=== PATIENT | male | born 1955 | race Caucasian/White ===

== ENCOUNTER 2021-11-01 14:53 | Inpatient (IN) | payer MEDICARE, OTHER ==
[~2021-11-01] VITALS: Ht 172.7 cm; Wt 60.8 kg
--- NOTE | 2021-11-01 15:15 | NUR ---
stephanie, from sn[facility], altered per report since this morning, +covid, no SOB. PLACED ON BED, AAOX4, SHAKY HANDS NOTED.
--- NOTE | 2021-11-01 15:30 | NUR ---
COAL PULVERIZING OPERATOR. AT BED SIDE
[2021-11-01] MEDS ORDERED: MULT-447 PO (15:31)
[2021-11-01] MEDS ORDERED: ASCO-352 PO (15:31)
[2021-11-01] MEDS ORDERED: LEVE1000 PO (15:31)
[2021-11-01] MEDS ORDERED: DULO30CA2 PO (15:31)
[2021-11-01] MEDS ORDERED: MAGN400O6 PO (15:31)
[2021-11-01] MEDS ORDERED: GABA600T12 PO (15:31)
[2021-11-01] MEDS ORDERED: DONE5TAB34 PO (15:31)
[2021-11-01] MEDS ORDERED: NA P133E RC (15:31)
[2021-11-01] MEDS ORDERED: BENZ1LOZ58 MM (15:31)
[2021-11-01] MEDS ORDERED: DOCU-141 PO (15:31)
[2021-11-01] MEDS ORDERED: PIMA34CA PO (15:31)
[2021-11-01] MEDS ORDERED: ACET-868 PO (15:31)
[2021-11-01] MEDS ORDERED: CARB1TAB21 PO (15:31)
[2021-11-01] MEDS ORDERED: BISA10SU11 RC (15:31)
[2021-11-01] MEDS ORDERED: CRAN425C6 PO (15:31)
[2021-11-01] MEDS ORDERED: ONDA4TAB5 PO (15:31)
[2021-11-01 16:09] LABS: BASOPHILS % (AUTO) 0.4 % (0.0-2.0); EOSINOPHILS % (AUTO) 0.3 % (0.0-6.0); HEMATOCRIT 37 % (39-51); HEMOGLOBIN 12.5 g/dL (13.5-17.5); LYMPHOCYTES # (AUTO) 1.6 K/uL (0.8-4.8); LYMPHOCYTES % (AUTO) 28.3 % (20.0-44.0); MEAN CORPUSCULAR HGB CONC 34 g/dl (31.0-36.0); MEAN CORPUSCULAR VOLUME 94 fL (80-96); MONOCYTES # (AUTO) 1.2 K/uL (0.1-1.30); MONOCYTES % (AUTO) 20.3 % (2.0-12.0); NEUTROPHILS # (AUTO) 2.9 K/uL (1.8-8.9); NEUTROPHILS % (AUTO) 50.7 % (43.0-81.0); PLATELET COUNT (AUTO) 267 K/uL (150-450); RED BLOOD CELL COUNT(AUTO) 3.92 MIL/uL (4.5-6.0); WHITE BLOOD COUNT (AUTO) 5.7 K/uL (4.3-11.0)
[2021-11-01 16:16] LABS: CALCIUM, SERUM 8.2 mg/dL (8.5-10.1); CARBON DIOXIDE 27 mmol/L (21-32); CHLORIDE 97 mmol/L (98-107); CREATININE 1.1 mg/dL (0.6-1.3); GLUCOSE 92 mg/dL (74-106); POTASSIUM 4.4 mmol/L (3.5-5.1); SODIUM SERUM 133 mmol/L (136-145); UREA NITROGEN, BLOOD 33 mg/dL (7-18)
[2021-11-01 16:21] LABS: CREATINE KINASE, TOTAL 386 U/L (39-308)
[2021-11-01 16:24] LABS: D-DIMER 0.59 mg/L(FEU (0.17-0.50)
[2021-11-01 16:26] LABS: C-REACTIVE PROTEIN 3.2 mg/dL (0.0-0.9)
[2021-11-01 16:30] LABS: ALANINE AMINOTRANSFERASE 21 U/L (12-78); ALBUMIN 3.3 g/dL (3.4-5.0); ALKALINE PHOSPHATASE 46 U/L (46-116); ASPARTATE AMINOTRANSFERASE 31 U/L (15-37); BILIRUBIN,TOTAL 0.3 mg/dL (0.2-1.0)
--- NOTE | 2021-11-01 17:25 | NUR ---
URINE SAMPLE, RAPID INFLUENZA ANTIGEN, NOVEL CORONAVIRUS RICHARD SENT TO LAB
[2021-11-01 18:32] LABS: BILIRUBIN,URINE NEGATIVE (NEGATIVE); COLOR,URINE YELLOW (YELLOW); LEUKOCYTE ESTERASE ,URINE NEGATIVE (NEGATIVE); NITRITE, URINE NEGATIVE (NEGATIVE); PROTEIN,URINE NEGATIVE (NEGATIVE); UGLUCOSE NEGATIVE (NEGATIVE); UROBILINOGEN,URINE 0.2 EU/dL (0.2)
--- NOTE | 2021-11-01 18:52 | NUR ---
PATIENT REFUSED IV CANULA- SALINE LOCK
[2021-11-01 19:26] LABS: BACTERIA,URINE None seen /HPF (None Seen); SQUAMOUS EPITHELIAL CELL,UR 0-2 /HPF (None Seen); WBC,URINE 0-2 /HPF (0-3)
[2021-11-01] MEDS ORDERED: MAGNESIUM HYDROXIDE 30 ML UDC PO PRN (20:30)
[2021-11-01] MEDS ORDERED: NA PHOS,M-B/NA PHOS,DI-BA 1 EA ENEMA RC PRN (20:30)
[2021-11-01] MEDS ORDERED: ALBUTEROL SULFATE 8 GM HFA.AER.AD IH PRN (20:30)
[2021-11-01] MEDS ORDERED: BISACODYL SUPP (10 MG) 10 MG/SUPP.RECT SUPP.RECT RC PRN (20:30)
[2021-11-01] MEDS ORDERED: MENTHOL/CETYLPYRD (CEPACOL) 1 LOZ LOZENGE PO PRN (20:30)
[2021-11-01] MEDS ORDERED: ACETAMINOPHEN 325 MG TABLET PO PRN (20:30)
[2021-11-01] MEDS ORDERED: HOME MED MISCELLANEOUS XX SCH (20:30)
--- NOTE | 2021-11-01 20:30 | NUR ---
REPORT GIVEN TO AYO PRITCHARD [id number] FOR CLEMENTE
[2021-11-01 21:00] VITALS: BP_SYST 86; BP_SYST 92; BP_DIAS 49
[2021-11-01] MEDS: LEVETIRACETAM (250 MG) 250 MG TABLET PO SCH (21:00)
[2021-11-01] MEDS: ENOXAPARIN SODIUM 40 MG/0.4 ML DISP.SYRIN SQ SCH (21:00)
--- NOTE | 2021-11-01 21:04 | NUR ---
RUBBER MIXER RCD PT FROM ER NO IV ACCESS IN PLACE MD AND NURSING PANEL INSTRUMENT REPAIRER AWARE. ATTEMPTED TO ASSES PT HOWEVER PT BECAME AGGRESSIVE AND WAS KICKING AND PUNCHING AT STAFF. PT AWAKE BUT DOES NOT ANSWER QUESTIONS; ONLY GRUNTS. UNABLE TO REMOVE PT CLOTHING. UNABLE TO ASSESS ARM COVERED IN BANDAGE. BED ALARM ON AND TO LOWEST POSITION.
--- NOTE | 2021-11-01 21:38 | NUR ---
PULMONOLOGY TECHNICIAN UNABLE TO COMPLETE PHYSICAL ASSESSMENT PT IS COMBATIVE Addendum: 11/01/21 at 2139 by AYO ANDREWS RN Amended: Links added.
[2021-11-01 21:50] LABS: BAND % (MANUAL) 2 % (0.0-5.0); LYMPHOCYTES % (MANUAL) 28 % (16-48); MONOCYTES % (MANUAL) 11 % (0-11.0); NEUTROPHILS % (MANUAL) 59 (42-76)
[2021-11-02 06:30] LABS: BASOPHILS % (AUTO) 0.4 % (0.0-2.0); EOSINOPHILS % (AUTO) 0.6 % (0.0-6.0); HEMATOCRIT 36 % (39-51); HEMOGLOBIN 12.6 g/dL (13.5-17.5); LYMPHOCYTES # (AUTO) 1.2 K/uL (0.8-4.8); LYMPHOCYTES % (AUTO) 25.1 % (20.0-44.0); MEAN CORPUSCULAR HGB CONC 35 g/dl (31.0-36.0); MEAN CORPUSCULAR VOLUME 92 fL (80-96); MONOCYTES % (AUTO) 19.8 % (2.0-12.0); NEUTROPHILS # (AUTO) 2.6 K/uL (1.8-8.9); NEUTROPHILS % (AUTO) 54.1 % (43.0-81.0); PLATELET COUNT (AUTO) 252 K/uL (150-450); RED BLOOD CELL COUNT(AUTO) 3.91 MIL/uL (4.5-6.0); WHITE BLOOD COUNT (AUTO) 4.8 K/uL (4.3-11.0)
[2021-11-02 06:51] LABS: ALBUMIN 3.2 g/dL (3.4-5.0); BILIRUBIN,TOTAL 0.3 mg/dL (0.2-1.0); CALCIUM, SERUM 8.6 mg/dL (8.5-10.1); CREATININE 1.2 mg/dL (0.6-1.3); POTASSIUM 4.5 mmol/L (3.5-5.1); TOTAL PROTEIN, SERUM 7.2 g/dL (6.4-8.2)
--- NOTE | 2021-11-02 07:37 | NUR ---
ms opening note Patient is resting comfortably in bed. Patient is alert and confused. patient is still refusing iv patient breathing room air. bed alarm on. bed locked in lowest position. will continue to monitor
[2021-11-02 08:00] VITALS: BP 105/58
[2021-11-02] MEDS: MULTIVITAMINS,THERAGRAN 1 UDTAB TABLET PO SCH (08:36)
[2021-11-02] MEDS: CARBIDOPA/LEVODOPA 25/100 MG 1 UDTAB PO SCH ×3 (08:36→16:04)
[2021-11-02] MEDS: GABAPENTIN 300 MG CAPSULE PO SCH ×4 (08:38→16:04)
[2021-11-02] MEDS: DULOXETINE HCL 30 MG CAPSULE.DR PO SCH (08:39)
[2021-11-02] MEDS: LEVETIRACETAM (250 MG) 250 MG TABLET PO SCH ×2 (08:39→21:00)
[2021-11-02] MEDS: DOCUSATE SODIUM 100 MG CAPSULE PO SCH (08:39)
[2021-11-02] MEDS: DONEPEZIL 5 MG TABLET PO SCH (08:39)
[2021-11-02] MEDS: ENOXAPARIN SODIUM 40 MG/0.4 ML DISP.SYRIN SQ SCH ×2 (08:39→21:00)
--- NOTE | 2021-11-02 08:42 | NUR ---
ms rn note patient refused most of his Meds and get agitated and noncompliant with care, explained how importance to take his medication but still refusing, spoke with tameka morris notified patient condition stated that will order [facility] dean
[2021-11-02 10:00] VITALS: BP 105/58
--- NOTE | 2021-11-02 10:20 | NUR ---
MS RN NOTE SEEN BY DR HUGO LIMON F\U
--- NOTE | 2021-11-02 11:11 | NUR ---
tele note called geripsych unit informed for psych eval. face sheet faxed.waiting for psychiatrist. rounds made. pt resting comfortably at this time
[2021-11-02 12:07] LABS: BAND % (MANUAL) 6 % (0.0-5.0); EOSINOPHILS % (MANUAL) 0 % (0-4); LYMPHOCYTES % (MANUAL) 37 % (16-48); MONOCYTES % (MANUAL) 22 % (0-11.0); NEUTROPHILS % (MANUAL) 35 (42-76)
--- NOTE | 2021-11-02 12:09 | NUR ---
pt strongly refusing medications after explaining the importance of medication
--- NOTE | 2021-11-02 12:15 | NUR ---
rounds made, patient is agitated. changed diaper, patient is clean and dry
--- NOTE | 2021-11-02 12:16 | NUR ---
followed up with psychiatrist and will visit patient tomorrow Addendum: 11/02/21 at 1226 by NICOLE THAYER RN dr orozco financial administrative assistant will see patient tomorrows
--- NOTE | 2021-11-02 12:28 | NUR ---
SS consult requested for aggressive behavior and non compliance. SW will follow up at a later time.
--- NOTE | 2021-11-02 15:13 | NUR ---
telephone collector note spoke with patient about home medication Nuplazid. family member can't bring it because doesn't where medication is. Pharmacy doesn't have this medication.spoke with pharmacy.pharmacy will follow up with MD. will follow up.
--- NOTE | 2021-11-02 15:28 | NUR ---
MS RN NOTE CALLED TO Padmaja ISSA NOTIFIED THAT PATIENT VERY AGITATED AND YELLING STATED DONT LET ME . NAVDEEP FROST ORDERED ZYPREXA 10 MG IM TIME ONE, ORDER CARRIED OUT
[2021-11-02] MEDS ORDERED: OLANZAPINE 10 MG VIAL IM ONE ×2 (15:30→16:30)
[2021-11-02 16:00] VITALS: BP 130/69
[2021-11-02] MEDS: ASCORBIC ACID 500 MG TABLET PO SCH (17:43)
--- NOTE | 2021-11-02 17:43 | NUR ---
MS RN NOTE PATIENT YELLING, AGITATED AND SCREAMING. ADMINISTERED OLANZAPINE AT 1730.PATIENT TRYING TO GET UP FROM BED.MEDICATION NOT GIVEN AT 1630.GIVEN AT 1740.ALL NEEDS MEET.KEEP CLEAN AND DRY
--- NOTE | 2021-11-02 18:32 | NUR ---
,S RN NOTE PATIENT IN BED STILL AGITATED HAVING DINNER , WILL CONT TO MONITOR CLOSELY
[2021-11-02 20:00] VITALS: BP 117/70
--- NOTE | 2021-11-02 20:12 | NUR ---
MS RN Opening Note Pt received in bed, awake, A&O x2 with periods of confusion. Pt is calm at the moment with no expressions of combativeness and irritation. Pt on RA with O2sat of 98%; pt shows no s/s of resp distress, no SOB or cough, non-labored and equal breathing. VSS, will continue to monitor as needed. Per endorsement from dayshift nurse, pt has refused to have IV initiated over the past couple of shifts; made aware. Bed in lowest position, call light within reach, side rails up x3. Will continue to monitor throughout the night.
--- NOTE | 2021-11-02 21:16 | NUR ---
MS RN Note Pt refused to take 2100 scheduled meds levetiracetam and lovenox.
[2021-11-03 04:00] VITALS: BP 107/74
--- NOTE | 2021-11-03 06:25 | NUR ---
MS RN Closing Notes Pt in bed, asleep but easily arousable, A&O x2-3 with periods of confusion. Pt was asleep from beginning of shift and woke up at 0100. When pt woke up, pt began yelling but no attempts made of getting out of bed. Pt was given fluids and snacks at 0400, then went back to sleep. Pt remains on RA O2sat was 98% throughout the whole night with no s/s of resp distress, no SOB, non-labored and equal breathing; appears comfortable overall. VSS throughout the whole night with no significant changes. Pt refused 2100 scheduled meds. Bed in lowest position, call light within reach, side rails up x3. WIll endorse to dayshift nurse to continue care.
[2021-11-03 08:00] VITALS: BP 120/68
--- NOTE | 2021-11-03 08:12 | NUR ---
RN OPENING NOTE- PT AWAKE, CONFUSED, IRRITABLE AT TIMES, INTERACTIVE, LABILE THOUGH DIRECTABLE, VS STABLE, PO INTAKE GOOD, MONITOR / ASSIST , ASSESS FOR BEHAVIORAL ISSUES, BED LOCKED, SIDE RAILS UP.
[2021-11-03] MEDS: LEVETIRACETAM (250 MG) 250 MG TABLET PO SCH ×2 (09:12→20:19)
[2021-11-03] MEDS: CARBIDOPA/LEVODOPA 25/100 MG 1 UDTAB PO SCH ×3 (09:12→16:24)
[2021-11-03] MEDS: DULOXETINE HCL 30 MG CAPSULE.DR PO SCH (09:12)
[2021-11-03] MEDS: MULTIVITAMINS,THERAGRAN 1 UDTAB TABLET PO SCH (09:12)
[2021-11-03] MEDS: DONEPEZIL 5 MG TABLET PO SCH (09:12)
[2021-11-03] MEDS: GABAPENTIN 300 MG CAPSULE PO SCH ×3 (09:12→16:24)
[2021-11-03] MEDS: DOCUSATE SODIUM 100 MG CAPSULE PO SCH (09:12)
[2021-11-03] MEDS: ENOXAPARIN SODIUM 40 MG/0.4 ML DISP.SYRIN SQ SCH ×2 (09:14→20:19)
[2021-11-03] MEDS ORDERED: hydrOXYzine PAMOATE 25 MG CAPSULE PO PRN (11:00)
[2021-11-03 12:00] VITALS: BP 124/80
--- NOTE | 2021-11-03 12:00 | NUR ---
RN NOTE- DR MOHAN SAW PT FOR PSYCHE CONSULT. ADDED RX TO REGIMEN. PT CALM, DIRECTABLE. PO INTAKE GOOD . UNDERSTANDS NEED TO STAY IN HOSPITAL UNTIL COVID TEST NEG.
[2021-11-03] MEDS: clonazePAM 0.5 MG TABLET PO SCH ×2 (12:31→16:24)
[2021-11-03] MEDS: ASCORBIC ACID 500 MG TABLET PO SCH (17:08)
--- NOTE | 2021-11-03 17:56 | NUR ---
PER MICRO PATIENT IS COVID POSITIVE PCR. NOTIFIED.
--- NOTE | 2021-11-03 18:57 | NUR ---
RN CLOSING NOTE- PT AWAKE, CONFUSED, CALMER THIS AFTERNOON, RX EFFECTIVE, INTERACTIVE, DIRECTABLE, VS STABLE, PO INTAKE GOOD, MONITOR / ASSIST , ASSESS FOR BEHAVIORAL ISSUES, BED LOCKED, SIDE RAILS UP.
--- NOTE | 2021-11-03 19:10 | NUR ---
RN OPENING NOTES RECEIVED PATIENT ON BED, SLEEPING, BUT AROUSE EASILY, COOPERATIVE, A/0 X 2-3 . AMBULATORY WITH ASSIST. ON ROOM AIR, SATING AT 98%. RESPIRATORY EVEN AND UNLABORED, NO SOB NOTED. AFEBRILE, NO S/S OF DISTRESS NOTED. NO IV LINE, PATIENT REFUSED. ALL SAFETY MEASURE PROVIDED. BED IN LOWEST POSITION, LOCKED. BED ALARM ARMED. CONTINUE TO MONITOR.
[2021-11-03 20:00] VITALS: BP 108/66
[2021-11-04 04:00] VITALS: BP 101/61
--- NOTE | 2021-11-04 08:10 | NUR ---
RN OPENING NOTES RECEIVED PATIENT IN BED, COOPERATIVE, A/0 X 2-3 . AMBULATORY WITH ASSIST. ON ROOM AIR, SATING AT 98%. RESPIRATORY EVEN AND UNLABORED, NO SOB NOTED. AFEBRILE, NO S/S OF DISTRESS NOTED. NO IV LINE, PATIENT REFUSED. ALL SAFETY MEASURE PROVIDED. WILL CONTINUE TO MONITOR.
[2021-11-04] MEDS: DONEPEZIL 5 MG TABLET PO SCH (09:00)
[2021-11-04] MEDS: ENOXAPARIN SODIUM 40 MG/0.4 ML DISP.SYRIN SQ SCH ×2 (09:00→20:51)
[2021-11-04] MEDS: LEVETIRACETAM (250 MG) 250 MG TABLET PO SCH ×2 (09:00→20:48)
[2021-11-04] MEDS: GABAPENTIN 300 MG CAPSULE PO SCH ×3 (09:00→16:24)
[2021-11-04] MEDS: clonazePAM 0.5 MG TABLET PO SCH ×3 (09:00→16:24)
[2021-11-04] MEDS: MULTIVITAMINS,THERAGRAN 1 UDTAB TABLET PO SCH (09:34)
[2021-11-04] MEDS: CARBIDOPA/LEVODOPA 25/100 MG 1 UDTAB PO SCH ×3 (09:34→16:25)
[2021-11-04] MEDS: DULOXETINE HCL 30 MG CAPSULE.DR PO SCH (09:34)
[2021-11-04] MEDS: DOCUSATE SODIUM 100 MG CAPSULE PO SCH (09:34)
[2021-11-04 12:00] VITALS: BP 101/61
[2021-11-04] MEDS ORDERED: HYDR25CA PO (13:25)
[2021-11-04] MEDS ORDERED: CLON0.5T PO (13:25)
[2021-11-04] MEDS: ASCORBIC ACID 500 MG TABLET PO SCH (18:00)
--- NOTE | 2021-11-04 19:00 | NUR ---
received patient in chair at his bedside alert ORX3 aware he is going home tomorrow dressed in his street clothes speech soft will make his needs known refusing some of his meications and refusing to have an IV placed
--- NOTE | 2021-11-04 19:21 | NUR ---
RN CLOSING NOTES PATIENT IN BED, COOPERATIVE, A/0 X 2-3 . AMBULATORY WITH ASSIST. ON ROOM AIR, SATING AT 98%. RESPIRATORY EVEN AND UNLABORED, NO SOB NOTED. AFEBRILE, NO S/S OF DISTRESS NOTED. NO IV LINE, PATIENT REFUSED. ALL SAFETY MEASURE PROVIDED. WILL ENDORSE TO SUPERVISOR LAMP SHADES RN FOR CLEMENTE.
[2021-11-04 20:00] VITALS: BP 108/69
[2021-11-05] VITALS: BP 95/58
[2021-11-05 04:00] VITALS: BP 110/72
--- NOTE | 2021-11-05 04:46 | NUR ---
Slept 7 hours this night. No SOB moves about independently. cooperative. forgets where he is and will ask me what to do He was unable to remove his pant to prepare for bed. He requested a diaper for the night. ambulates slow steady gait. Hx Parkinson and shaking visible
--- NOTE | 2021-11-05 07:10 | NUR ---
RN NOTE RECEIVED PATIENT IN BED RESTING ALERT ORIENTED X2 S/P CONFUSION ON ROOM AIR O2:96% AMBULATORY WITH ASSIST,SAFETY MEASURE IMPLEMENT BED IN LOW POSITON AND LOCKED,BED ALARM IS ON,CALL LIGHT WITHIN REACH, CONTINUE TO MONITOR.
[2021-11-05] MEDS: CARBIDOPA/LEVODOPA 25/100 MG 1 UDTAB PO SCH ×2 (08:50→12:01)
[2021-11-05] MEDS: DULOXETINE HCL 30 MG CAPSULE.DR PO SCH (08:50)
[2021-11-05] MEDS: GABAPENTIN 300 MG CAPSULE PO SCH ×2 (09:00→12:05)
[2021-11-05] MEDS: DONEPEZIL 5 MG TABLET PO SCH (09:00)
[2021-11-05] MEDS: MULTIVITAMINS,THERAGRAN 1 UDTAB TABLET PO SCH (09:00)
[2021-11-05] MEDS: clonazePAM 0.5 MG TABLET PO SCH (09:00)
[2021-11-05] MEDS: LEVETIRACETAM (250 MG) 250 MG TABLET PO SCH (09:00)
[2021-11-05] MEDS: ENOXAPARIN SODIUM 40 MG/0.4 ML DISP.SYRIN SQ SCH (09:00)
[2021-11-05] MEDS: DOCUSATE SODIUM 100 MG CAPSULE PO SCH (09:00)
--- NOTE | 2021-11-05 10:02 | NUR ---
SS received consult for non-compliance and aggressive behavior. SW attempted to interview pt. but he is confused. Pt. was alert and oriented x2. SS will follow-up at a later time.
[2021-11-05] MEDS ORDERED: LORAZEPAM 1 MG TABLET PO PRN (10:30)
[2021-11-05 12:00] VITALS: BP 118/70
--- NOTE | 2021-11-05 13:00 | NUR ---
RN NOTE PATIENT REFUSED TO TAKE HIS MEDS EXCEPTS [facility] MEDS AND VITAMIN C,EDUCATED HIM HE STILL REFUSED
--- NOTE | 2021-11-05 14:53 | NUR ---
SUPERVISOR DRYING AND WINDING NOTE PATIENT DISCHARGE TO [facility] IN STABLE CONDITION WITH HIS BELONGINGS ALERT ORIENTED X2 VERBALLY RESPONSIVE NO SOB NOT ACUTE DISTRESS NOTED,ON ROOM AIR O2:98% NO IV ACCESS,REPORT GIVEN TO DANIELLA PRITCHARD AT [facility],PATIENT PICKED UP BY [employer] [employer] ACCOMPANIED BY 2 EMPLOYMENT ADVISOR,AFTER PATIENT SIGNED BELONGINGS PAPER.VS BP 118/70 HR 69 O2:98% T:98.4,RR 18.
== END 2021-11-05 15:52 | DRG 177 ==
LOC: ER 14:56 → TELE-TD 19:47 → MEDSG1 21:42
PROVIDERS: ADMIT Nurse Practitioner Acute Care; ATTEND Nurse Practitioner Acute Care
DX: U07.1 COVID-19 (principal); G92.8 Other toxic encephalopathy; E87.1 Hypo-osmolality and hyponatremia; F02.81 Dementia in other diseases classified elsewhere, unspecified severity, with behavioral disturbance; G40.909 Epilepsy, unspecified, not intractable, without status epilepticus; G20 Parkinson's disease; F32.A Depression, unspecified; Z87.820 Personal history of traumatic brain injury; Z91.81 History of falling; R62.7 Adult failure to thrive; F43.10 Post-traumatic stress disorder, unspecified; Z79.899 Other long term (current) drug therapy; E86.1 Hypovolemia; D63.8 Anemia in other chronic diseases classified elsewhere; F29 Unspecified psychosis not due to a substance or known physiological condition; R79.89 Other specified abnormal findings of blood chemistry; F15.21 Other stimulant dependence, in remission; F10.21 Alcohol dependence, in remission
CPT/HCPCS: 36415; 71045-TC; 80053-TC; 81001; 82550-TC; 82553; 82728-TC; 83605-TC; 83615-TC; 83880; 84484-TC; 85025-TC; 85378-TC; 85730-TC; 86140-TC; 87040-TC; 87081-TC; 87086-TC; G0378; J1650; J3490; U0003

== ENCOUNTER 2021-11-06 15:29 | Emergency (ER) | payer MEDICARE, OTHER ==
[~2021-11-06] VITALS: Ht 172.7 cm; Wt 62.6 kg
[~2021-11-06 15:29] MED LIST: ACET-868 PO; ASCO-352 PO; BENZ1LOZ58 MM; BISA10SU11 RC; CARB1TAB21 PO; CLON0.5T PO; CRAN425C6 PO; DOCU-141 PO; DONE5TAB34 PO; DULO30CA2 PO; GABA600T12 PO; HYDR25CA PO; LEVE1000 PO; MAGN400O6 PO; MULT-447 PO; NA P133E RC; ONDA4TAB5 PO; PIMA34CA PO
--- NOTE | 2021-11-06 16:44 | NUR ---
BIBPA FOR PSYCH EVAL, NON COMPLIANT TO STAFF OF [facility] COVID+ PER EMS REPORT. TO ER BED 7, HOOKED TO MONITOR, CHANGED TO HOSP GOWN, WARM BLANKET PROVIDED. PATIENT AAO x 3. BREATHING EVEN AND UNLABORED. PATIENT CALM AND COOPERATIVE. AWAITING MD MG.
--- NOTE | 2021-11-06 16:50 | NUR ---
DR CAMPOS AT BEDSIDE
--- NOTE | 2021-11-06 17:15 | NUR ---
RAPID COVID SWAB DONE AND SENT TO LAB
--- NOTE | 2021-11-06 17:23 | NUR ---
FAMILY CONTACT NUMBERS: MANUEL & JOBY CONLEY (SISTER & BRO-IN-LAW): [phone] FATMATA YAEL (BROTHER): [phone] GIGI CONLEY (MOTHER): [phone] DR CAMPOS ABLE TO SPEAK WITH BROTHER FATMATA AND MOTHER GIGI.
--- NOTE | 2021-11-06 17:36 | NUR ---
URINE SAMPLE COLLECTED AND SENT TO LAB
[2021-11-06 17:47] LABS: BASOPHILS % (AUTO) 0.3 % (0.0-2.0); EOSINOPHILS % (AUTO) 1.6 % (0.0-6.0); HEMATOCRIT 35 % (39-51); HEMOGLOBIN 11.9 g/dL (13.5-17.5); LYMPHOCYTES # (AUTO) 1.8 K/uL (0.8-4.8); LYMPHOCYTES % (AUTO) 29.1 % (20.0-44.0); MEAN CORPUSCULAR HGB CONC 34 g/dl (31.0-36.0); MEAN CORPUSCULAR VOLUME 93 fL (80-96); MONOCYTES # (AUTO) 0.9 K/uL (0.1-1.30); MONOCYTES % (AUTO) 14.7 % (2.0-12.0); NEUTROPHILS # (AUTO) 3.4 K/uL (1.8-8.9); NEUTROPHILS % (AUTO) 54.3 % (43.0-81.0); PLATELET COUNT (AUTO) 311 K/uL (150-450); RED BLOOD CELL COUNT(AUTO) 3.74 MIL/uL (4.5-6.0); WHITE BLOOD COUNT (AUTO) 6.2 K/uL (4.3-11.0)
[2021-11-06 18:07] LABS: BILIRUBIN,URINE NEGATIVE (NEGATIVE); COLOR,URINE YELLOW (YELLOW); LEUKOCYTE ESTERASE ,URINE NEGATIVE (NEGATIVE); NITRITE, URINE NEGATIVE (NEGATIVE); PH,URINE 5.5 (5.0-8.0); PROTEIN,URINE NEGATIVE (NEGATIVE); UGLUCOSE NEGATIVE (NEGATIVE)
[2021-11-06 18:12] LABS: ALANINE AMINOTRANSFERASE 27 U/L (12-78); ALBUMIN 3.4 g/dL (3.4-5.0); ALCOHOL, BLOOD < 3 mg/dL (0-0); ALKALINE PHOSPHATASE 66 U/L (46-116); ASPARTATE AMINOTRANSFERASE 45 U/L (15-37); BILIRUBIN,DIRECT 0.1 mg/dL (0.0-0.2); BILIRUBIN,TOTAL 0.3 mg/dL (0.2-1.0); CALCIUM, SERUM 8.8 mg/dL (8.5-10.1); CARBON DIOXIDE 27 mmol/L (21-32); CHLORIDE 106 mmol/L (98-107); CREATININE 0.8 mg/dL (0.6-1.3); GLUCOSE 96 mg/dL (74-106); POTASSIUM 3.9 mmol/L (3.5-5.1); SODIUM SERUM 141 mmol/L (136-145); TOTAL PROTEIN, SERUM 7.3 g/dL (6.4-8.2); UREA NITROGEN, BLOOD 21 mg/dL (7-18)
[2021-11-06 18:15] LABS: BACTERIA,URINE None seen /HPF (None Seen); MUCUS,URINE Few /LPF (None Seen); RBC,URINE 0-2 /HPF (0-2); WBC,URINE 0-2 /HPF (0-3)
[2021-11-06 18:16] LABS: ACETAMINOPHEN < 10 ug/ml (10-30)
--- NOTE | 2021-11-06 18:23 | NUR ---
FOLLOWED UP WITH MAIN LAB ABOUT COVID RESULT.
[2021-11-06 19:13] LABS: SQUAMOUS EPITHELIAL CELL,UR 0-2 /HPF (None Seen)
--- NOTE | 2021-11-06 19:16 | NUR ---
POSITIVE COVID RESULT RELAYED BY TRUCK AND TRANSPORT MECHANIC
--- NOTE | 2021-11-06 19:26 | NUR ---
SPOKE TO MOTHER, BROTHER AND SISTER. THEY ARE NOT ABLE TO TAKE PATIENT UPON DISCHARGE. MADE MD AWARE. WILL LET RIVERBOAT MASTER KNOW TOMORROW.
--- NOTE | 2021-11-06 20:06 | NUR ---
DINNER AND WATER OFFERED TO PT; PT TOLERATING WELL
--- NOTE | 2021-11-07 00:19 | NUR ---
REPORT GIVEN TO SHA BURT AT [facility].
--- NOTE | 2021-11-07 00:23 | NUR ---
PT WILL BE TRANSPORTED BACK TO FACILITY IN 90 MINS VIA [facility].
--- NOTE | 2021-11-07 01:29 | NUR ---
REPORT GIVEN TO [facility] FOR PT TO DC TO [facility]. VSS.
[2021-11-07 01:31] VITALS: BP 121/64
--- NOTE | 2021-11-07 01:44 | NUR ---
Patient discharged to [facility] in stable condition via [facility]. Written and verbal after care instructions given to SHA Díaz.
== END 2021-11-07 01:45 ==
LOC: ER 16:00
DX: R45.1 Restlessness and agitation (principal); U07.1 COVID-19; G20 Parkinson's disease; F02.81 Dementia in other diseases classified elsewhere, unspecified severity, with behavioral disturbance; G40.909 Epilepsy, unspecified, not intractable, without status epilepticus; Z87.820 Personal history of traumatic brain injury
CPT/HCPCS: 36415; 80048-TC; 80076-TC; 81001; 85025-TC; C9803; G0480

== ENCOUNTER 2021-11-25 12:08 | Inpatient (IN) | payer MEDICARE, OTHER ==
[~2021-11-25] VITALS: Ht 172.7 cm; Wt 69.4 kg
--- NOTE | 2021-11-25 12:16 | NUR ---
TO ER BED 11, BISI FROM [facility] FOR PSYCH EVAL, AAOX3, BREATHING EVEN AND NON LABORED, CONNECTED TO MONITOR, AWAITING EVAL
--- NOTE | 2021-11-25 12:35 | NUR ---
HAND STONE POLISHER AT BEDSIDE FOR BLOOD DRAW
--- NOTE | 2021-11-25 12:44 | NUR ---
COVID SWAB DONE AND SENT TO LAB
--- NOTE | 2021-11-25 12:47 | NUR ---
UNABLE TO PROVIDE URINE AT THIS TIME
[2021-11-25 12:54] LABS: BASOPHILS % (AUTO) 0.5 % (0.0-2.0); EOSINOPHILS % (AUTO) 3.6 % (0.0-6.0); HEMATOCRIT 39 % (39-51); HEMOGLOBIN 13.1 g/dL (13.5-17.5); LYMPHOCYTES # (AUTO) 2.4 K/uL (0.8-4.8); LYMPHOCYTES % (AUTO) 26.1 % (20.0-44.0); MEAN CORPUSCULAR HGB CONC 33 g/dl (31.0-36.0); MEAN CORPUSCULAR VOLUME 96 fL (80-96); MONOCYTES # (AUTO) 1.1 K/uL (0.1-1.30); MONOCYTES % (AUTO) 12.2 % (2.0-12.0); NEUTROPHILS # (AUTO) 5.2 K/uL (1.8-8.9); NEUTROPHILS % (AUTO) 57.6 % (43.0-81.0); PLATELET COUNT (AUTO) 287 K/uL (150-450); RED BLOOD CELL COUNT(AUTO) 4.12 MIL/uL (4.5-6.0); WHITE BLOOD COUNT (AUTO) 9.1 K/uL (4.3-11.0)
--- NOTE | 2021-11-25 12:55 | NUR ---
MOVE SHEET SUBMITTED.
--- NOTE | 2021-11-25 13:04 | NUR ---
room 213-A
[2021-11-25 13:23] LABS: CALCIUM, SERUM 8.8 mg/dL (8.5-10.1); CARBON DIOXIDE 28 mmol/L (21-32); CHLORIDE 102 mmol/L (98-107); GLUCOSE 117 mg/dL (74-106); POTASSIUM 4.4 mmol/L (3.5-5.1); SODIUM SERUM 138 mmol/L (136-145); UREA NITROGEN, BLOOD 22 mg/dL (7-18)
--- NOTE | 2021-11-25 13:24 | NUR ---
URINE COLLECTED AND SENT TO LAB
[2021-11-25 13:37] LABS: ALANINE AMINOTRANSFERASE 11 U/L (12-78); ALBUMIN 3.8 g/dL (3.4-5.0); ALCOHOL, BLOOD < 3 mg/dL (0-0); ALKALINE PHOSPHATASE 85 U/L (46-116); ASPARTATE AMINOTRANSFERASE 23 U/L (15-37); BILIRUBIN,DIRECT 0.1 mg/dL (0.0-0.2); BILIRUBIN,TOTAL 0.2 mg/dL (0.2-1.0); TOTAL PROTEIN, SERUM 7.4 g/dL (6.4-8.2)
[2021-11-25] MEDS ORDERED: HYDR25CA PO (13:38)
[2021-11-25 13:39] LABS: ACETAMINOPHEN < 10 ug/ml (10-30)
--- NOTE | 2021-11-25 13:42 | NUR ---
CALLED [facility] [phone]
[2021-11-25 13:46] LABS: BILIRUBIN,URINE NEGATIVE (NEGATIVE); COLOR,URINE YELLOW (YELLOW); LEUKOCYTE ESTERASE ,URINE NEGATIVE (NEGATIVE); NITRITE, URINE NEGATIVE (NEGATIVE); PH,URINE 5.5 (5.0-8.0); PROTEIN,URINE NEGATIVE (NEGATIVE); UGLUCOSE NEGATIVE (NEGATIVE); UROBILINOGEN,URINE 0.2 EU/dL (0.2)
[2021-11-25 13:56] LABS: BACTERIA,URINE Few /HPF (None Seen); RBC,URINE 0-2 /HPF (0-2); SQUAMOUS EPITHELIAL CELL,UR Few /HPF (None Seen)
--- NOTE | 2021-11-25 15:23 | NUR ---
REPORT GIVEN TO ARIEL PRITCHARD FOR CLEMENTE
--- NOTE | 2021-11-25 15:30 | NUR ---
TRANSFERRED TO [facility] IN STABLE CONDITION
--- NOTE | 2021-11-25 15:35 | NUR ---
Patient is a 66 year old male admitted on a 5150 hold for DTS that began on 11/25/21 @1500 and will on 11/28/21 @1500. Patient is full code. No known allergies. Patient is B/B continent and ambulatory with a steady gait. However, patient noted with episodes of stumbling due to a callus on his right little toe, which is covered with dressing. Patient refused further assessment of the area. Skin is otherwise intact. Patient has a past history of Parkinson's disease, generalized muscle weakness, seizures, polyneuropathy, dementia, TBI, falls, MDD, PTSD, psychosis, and anxiety. Per hold, patient is depressed and claims he wants to wrap a cord around his neck because he is tired of life. Upon face to face assessment, patient is anxious, guarded, and defensive. He exhibits hypervigilant behavior and is noncompliant with care. Patient is suspicious of others, and states "That doctor diagnosed me with Parkinson's, but I don't have it! Do you see me shaking? He wants to lock me up in here!" Patient is also restless and is observed pacing in his room. However, patient responds well to persistent redirection. Patient is also confused with a disorganized thought process. He has pressured speech and often goes on rambling tangents during conversation. Dr. Saucedo and Dr. Acosta made aware of the patient's arrival onto the unit. Patient's belongings were inventoried by [facility], and kept safe in belongings closet. Patient was explained his hold, handed his patient rights booklet, and explained his rights. Encouraged to ask questions or express concerns. Patient expressed disinterest. Patient was given a tour of the unit and was explained the policies and procedures of [facility]. Will continue to address patient's needs and to monitor patient.
[2021-11-25] MEDS ORDERED: ACETAMINOPHEN 325 MG TABLET PO PRN ×2 (16:00→21:30)
[2021-11-25] MEDS ORDERED: BLOOD SUGAR DIAGNOSTIC 1 EACH STRIP IN ONE (16:00)
[2021-11-25] MEDS ORDERED: MAGNESIUM HYDROXIDE 30 ML UDC PO PRN ×2 (16:00→21:30)
[2021-11-25] MEDS ORDERED: MAG HYDROX/AL HYDROX/SIMETH 30 ML UDC PO PRN (16:00)
[2021-11-25] MEDS ORDERED: LORAZEPAM 1 MG TABLET PO PRN (16:30)
--- NOTE | 2021-11-25 19:15 | NUR ---
GPS RN NOTES RECEIVED PATIENT IN BED AWAKE, ALERT AND ORIENTED X3. ABLE TO MAKE NEEDS KNOWN. NO S/SX OF ACUTE DISTRESS NOTED. PATIENT REMAINS ANXIOUS, DEPRESSED, GUARDED, BLUNTED AFFECT. DENIED SI/HI/AVH AT THIS TIME. VERBALIZATION OF FEELINGS ENCOURAGED. ENCOURAGED TO ATTEND IN GROUP ACTIVITIES. SAFETY PRECAUTIONS MAINTAINED. WILL CONTINUE TO MONITOR Q15MIN ROUNDS FOR SAFETY AND BEHAVIOR. PATIENT REFUSING BED ALARM ON TO ALERT NURSING STAFF WHEN HE'S TRYING TO GET OUT OF BED. PATIENT STATES "I DON'T WANT THAT". DESPITE OF EXPLANATION THE IMPORTANCE OF BEING COMPLIANT BUT PATIENT CONTINUED TO REFUSE. WILL CONTINUE TO MONITOR FOR PATIENT'S SAFETY.
--- NOTE | 2021-11-25 19:27 | NUR ---
GPS RN NOTE, PATIENT IS A NEW ADMIT AND NEEDS A MEDICATION RECONCILIATION. PAGED [facility] AND INFORMED ALICIA HERNÁNDEZ NP OF MY FINDINGS. ALICIA HERNÁNDEZ NP STATED, "I WILL DO THIS MEDICATION RECONCILIATION SOON POSSIBLE". WILL CONTINUE TO MONITOR THIS PATIENT WITH THE HELP OF STAFF.
[2021-11-25 20:00] VITALS: BP 117/71
[2021-11-25] MEDS: ZOLPIDEM TARTRATE 5 MG TABLET PO PRN (21:24)
[2021-11-25] MEDS ORDERED: BISACODYL SUPP (10 MG) 10 MG/SUPP.RECT SUPP.RECT RC PRN (21:30)
[2021-11-25] MEDS ORDERED: NA PHOS,M-B/NA PHOS,DI-BA 1 EA ENEMA RC PRN (21:30)
[2021-11-25] MEDS ORDERED: ONDANSETRON 4 MG TAB.RAPDIS PO PRN (22:00)
[2021-11-25] MEDS ORDERED: MENTHOL/CETYLPYRD (CEPACOL) 1 LOZ LOZENGE MM PRN (22:00)
[2021-11-26 07:08] LABS: CHOLESTEROL 202 mg/dL (<200); HDL CHOLESTEROL 65 mg/dL (40-60); LDL 124 mg/dL (0-99); TRIGLYCERIDES 68 mg/dL (30-150)
[2021-11-26 07:33] LABS: ALBUMIN 3.7 g/dL (3.4-5.0); BILIRUBIN,TOTAL 0.6 mg/dL (0.2-1.0); CALCIUM, SERUM 9.1 mg/dL (8.5-10.1); CREATININE 1.1 mg/dL (0.6-1.3); TOTAL PROTEIN, SERUM 7.8 g/dL (6.4-8.2)
[2021-11-26 08:00] VITALS: BP 124/73
[2021-11-26] MEDS: CARBIDOPA/LEVODOPA 25/100 MG 1 UDTAB PO SCH ×3 (08:57→16:11)
[2021-11-26] MEDS: DONEPEZIL 5 MG TABLET PO SCH (08:57)
[2021-11-26] MEDS: LEVETIRACETAM (250 MG) 250 MG TABLET PO SCH ×3 (08:57→21:18)
[2021-11-26] MEDS: GABAPENTIN 300 MG CAPSULE PO SCH ×3 (08:57→16:11)
[2021-11-26] MEDS: DOCUSATE SODIUM 100 MG CAPSULE PO SCH (08:57)
[2021-11-26] MEDS ORDERED: Medication Not On Formulary EA (Pimavanserin Tartrate (Nuplazid) 34 MG) PO SCH (09:00)
[2021-11-26] MEDS ORDERED: Medication Not On Formulary EA (Cranberry Extract (Cranberry) 425 MG) PO SCH (09:00)
--- NOTE | 2021-11-26 09:00 | NUR ---
RN NOTES PATIENT REFUSED KEPPRA 1000 MG FOR 0900. EDUCATE THE BENEFITS AND USAGE OF THE MEDICATION, BUT PATIENT REFUSED STRONGLY.
--- NOTE | 2021-11-26 09:36 | NUR ---
MAMIE Initial Discharge Plan: Patient currently resides at [facility] [address] [place] [address] ([phone]).MAMIE spoke with Nicky pfeiffer who stated that pt is welcomed back upon discharge, however, she stated that the facility has a covid outbreak and would need to follow up with this insurance underwriter when dc will be. Pt did not want this insurance underwriter to contact brother in law Huizar ([phone]). However, per documents, number does not exist. Pt does not have any supportive contact at this time. MAMIE will work with the MD and pt to help coordinate appropriate discharge.
--- NOTE | 2021-11-26 09:36 | NUR ---
SW Family Contact: Pt did not want this assembly instructions writer to contact brother in law Bhupendra ([phone]). However, per documents, number does not exist. Pt does not have any supportive contact at this time.
--- NOTE | 2021-11-26 09:36 | NUR ---
MAMIE Clinical Note: Patient placed on a 5150 hold for danger to himself. Pt had a plan to wrap himself with a cord at the facility. Patient currently resides at [facility] [place] [address] ([phone]).MAMIE spoke with Nicky pfeiffer who stated that pt is welcomed back upon discharge, however, she stated that the facility has a covid outbreak and would need to follow up with this proposal manager writer when dc will be. Pt did not want this proposal manager writer to contact brother in law Bhupendra ([phone]). However, per documents, number does not exist.
--- NOTE | 2021-11-26 09:38 | NUR ---
Treatment Plan: Pt refused to sign treatment plan and appeared anxious.
[2021-11-26] MEDS ORDERED: hydrOXYzine PAMOATE 25 MG CAPSULE PO PRN (10:30)
--- NOTE | 2021-11-26 10:38 | NUR ---
WOUND CARE CONSULT: PT PRESENTS WITH PAINFUL RAISED CALLUS TO RT PLANT[employer], PRESENT ON ADMISSION. GALO PIERRE CALLED FOR DPM CONSULT. IN AGREEMENT WITH PLAN OF CARE.
[2021-11-26] MEDS: clonazePAM 0.5 MG TABLET PO SCH ×2 (12:46→16:11)
[2021-11-26] MEDS: MINERAL OIL/PETROLATUM,WHITE 120 GM JAR TP SCH (13:43)
[2021-11-26 16:00] VITALS: BP 101/69
[2021-11-26] MEDS: ASCORBIC ACID 500 MG TABLET PO SCH (17:08)
[2021-11-26] MEDS: MULTIVIT W/MINERALS 1 TAB TABLET PO SCH (17:08)
--- NOTE | 2021-11-26 17:36 | NUR ---
RN NOTES AROUND 1730 NURSE FLEX REPORTED THAT PATIENT SAT ON THE FLOOR IN THE DINING ROOM. IT HAPPENED WHEN PATIENT WHILE WAS EATING DINNER IN THE DINING ROOM , LEFT TO GO TO HIS ROOM, WHILE HE WENT BACK FROM ROOM TO CONTINUE EATING HIS DINNER IN THE DINING ROOM, HE MISSED THE CHAIR AND SLOWLY SAT ON THE FLOOR. WHEN I ASKED THE PATIENT WHAT HAPPENED, HE STATED " I DID NOT FALL , I JUST SAT ON THE FLOOR BECAUSE I MISSED THE CHAIR. NO INJURY NOTED. NO PAIN NOTED. SINCE MORNING CONTINUOUSLY REMINDING THE PATIENT TO USE WALKER OR CALL FOR ASSISTANCE IF ANY HELP NEEDED. PATIENT NOT COMPLIANT WITH WALKING SAFETY, AND HE IS NOT USING WALKER OR REFUSING ANY ASSISTANCE. WILL CONTINUE TO MONITOR CLOSELY.
[2021-11-26 20:20] VITALS: BP 102/63
--- NOTE | 2021-11-26 20:31 | NUR ---
RN NOTES: PATIENT WATCHING TV IN DAY ROOM AWAKE ALERT, PATIENT REMAINS ANXIOUS, DEPRESSED, GUARDED, BLUNTED AFFECT.DISORGNIZED, CONFUSED FORGETFUL,UNSTEADY GAIT, HIGH FALL RISK, NEEDY DEMENDING , NEEDS FREQUENTLY REDIRECTIONS ,DENIED SI/HI/AVH AT THIS TIME. VERBALIZATION OF FEELINGS ENCOURAGED. ENCOURAGED TO ATTEND IN GROUP ACTIVITIES. SAFETY PRECAUTIONS MAINTAINED. WILL CONTINUE TO MONITOR Q15MIN ROUNDS FOR SAFETY AND BEHAVIOR.
[2021-11-26] MEDS: QUETIAPINE FUMARATE 25 MG TABLET PO SCH (21:18)
--- NOTE | 2021-11-26 22:55 | NUR ---
RN NOTES: PT. REFUSED SKIN ASSESSMENT AND RIGHT /LEFT FOOT CALLUSES PHOTO TAKEN , ENCOURAGED X3 STILL STRONGLY REFUSED .
[2021-11-27 08:00] VITALS: BP 138/86
[2021-11-27] MEDS: CARBIDOPA/LEVODOPA 25/100 MG 1 UDTAB PO SCH ×3 (08:12→17:00)
[2021-11-27] MEDS: DOCUSATE SODIUM 100 MG CAPSULE PO SCH (08:12)
[2021-11-27] MEDS: GABAPENTIN 300 MG CAPSULE PO SCH ×3 (08:12→17:00)
[2021-11-27] MEDS: DONEPEZIL 5 MG TABLET PO SCH (08:12)
[2021-11-27] MEDS: clonazePAM 0.5 MG TABLET PO SCH ×3 (08:13→17:00)
[2021-11-27] MEDS: LEVETIRACETAM (250 MG) 250 MG TABLET PO SCH ×2 (08:13→20:47)
[2021-11-27] MEDS: MINERAL OIL/PETROLATUM,WHITE 120 GM JAR TP SCH (11:54)
[2021-11-27] MEDS: ESCITALOPRAM OXALATE (10 MG) 10 MG TABLET PO SCH (11:59)
[2021-11-27 16:00] VITALS: BP 142/74
[2021-11-27] MEDS: MULTIVIT W/MINERALS 1 TAB TABLET PO SCH (17:57)
[2021-11-27] MEDS: ASCORBIC ACID 500 MG TABLET PO SCH (17:57)
[2021-11-27 20:19] VITALS: BP 140/63
--- NOTE | 2021-11-27 20:26 | NUR ---
RN NOTES: PATIENT RESTING HIS ROOM AWAKE ALERT, EASILY AGITATED , DEPRESSED, GUARDED, BLUNTED AFFECT.DISORGNIZED, CONFUSED FORGETFUL , HYPERVERVAL , TALKING TO SELF,UNSTEADY GAIT, HIGH FALL RISK, NEEDY DEMENDING , NEEDS FREQUENTLY REDIRECTIONS DENIED SI/HI/AVH AT THIS TIME.ENCOURAGED PT. VERBALIZATION OF FEELINGS ENCOURAGED TO ATTEND IN GROUP ACTIVITIES. SAFETY PRECAUTIONS MAINTAINED. WILL CONTINUE TO MONITOR Q15MIN ROUNDS FOR SAFETY AND BEHAVIOR.
[2021-11-27] MEDS: QUETIAPINE FUMARATE 25 MG TABLET PO SCH (22:01)
[2021-11-28 08:00] VITALS: BP 102/63
--- NOTE | 2021-11-28 08:02 | NUR ---
RN OPENING NOTE PATIENT AWAKE IN BED RESTING. A/O X3, CONFUSED FORGETFUL, EASILY AGITATED. NO S/S OF PAIN NOTED AT THIS TIME. ON ROOM AIR, NO DISTRESS OR SHORTNESS OF BREATH NOTED. PATIENT IS COMPLIANT WITH MEDICATIONS. PATIENT DENIES SUICIDE IDEATION AND HOMICIDAL IDEATIONS AT THIS TIME. FALL AND SAFETY MEASURES IN PLACE, BED ALARM ON, BED IN LOW AND LOCK POSITION, CALL LIGHT AND TABLE WITHIN EASY REACH, SIDE RAILS UP X2. WILL CONTINUE TO MONITOR Q15 MINUTES WITH HELP OF STAFF TO MAINTAIN SAFETY.
[2021-11-28] MEDS: DONEPEZIL 5 MG TABLET PO SCH (08:31)
[2021-11-28] MEDS: DOCUSATE SODIUM 100 MG CAPSULE PO SCH (08:31)
[2021-11-28] MEDS: MINERAL OIL/PETROLATUM,WHITE 120 GM JAR TP SCH (08:31)
[2021-11-28] MEDS: CARBIDOPA/LEVODOPA 25/100 MG 1 UDTAB PO SCH ×3 (08:33→17:23)
[2021-11-28] MEDS: LEVETIRACETAM (250 MG) 250 MG TABLET PO SCH ×2 (08:33→20:08)
[2021-11-28] MEDS: GABAPENTIN 300 MG CAPSULE PO SCH ×3 (08:33→17:23)
[2021-11-28] MEDS: ESCITALOPRAM OXALATE (10 MG) 10 MG TABLET PO SCH (08:33)
[2021-11-28] MEDS: clonazePAM 0.5 MG TABLET PO SCH ×3 (08:36→17:24)
[2021-11-28 16:00] VITALS: BP 110/59
[2021-11-28] MEDS: ASCORBIC ACID 500 MG TABLET PO SCH (17:23)
[2021-11-28] MEDS: MULTIVIT W/MINERALS 1 TAB TABLET PO SCH (17:23)
[2021-11-28 19:55] VITALS: BP 105/76
[2021-11-28] MEDS: QUETIAPINE FUMARATE 25 MG TABLET PO SCH (21:06)
[2021-11-28] MEDS: ZOLPIDEM TARTRATE 5 MG TABLET PO PRN (21:53)
[2021-11-29 08:00] VITALS: BP 129/74
[2021-11-29] MEDS: GABAPENTIN 300 MG CAPSULE PO SCH ×3 (09:07→17:31)
[2021-11-29] MEDS: DOCUSATE SODIUM 100 MG CAPSULE PO SCH (09:08)
[2021-11-29] MEDS: clonazePAM 0.5 MG TABLET PO SCH ×3 (09:08→17:31)
[2021-11-29] MEDS: ESCITALOPRAM OXALATE (10 MG) 10 MG TABLET PO SCH (09:08)
[2021-11-29] MEDS: LEVETIRACETAM (250 MG) 250 MG TABLET PO SCH ×2 (09:08→21:41)
[2021-11-29] MEDS: CARBIDOPA/LEVODOPA 25/100 MG 1 UDTAB PO SCH ×3 (09:08→17:31)
[2021-11-29] MEDS: DONEPEZIL 5 MG TABLET PO SCH (09:08)
[2021-11-29] MEDS: MINERAL OIL/PETROLATUM,WHITE 120 GM JAR TP SCH (09:11)
[2021-11-29 16:00] VITALS: BP 115/70
[2021-11-29] MEDS: MULTIVIT W/MINERALS 1 TAB TABLET PO SCH (18:00)
[2021-11-29] MEDS: ASCORBIC ACID 500 MG TABLET PO SCH (18:04)
[2021-11-29 20:05] VITALS: BP 99/52
[2021-11-29] MEDS: QUETIAPINE FUMARATE 25 MG TABLET PO SCH (21:39)
--- NOTE | 2021-11-30 07:20 | NUR ---
RN NOTE SEEN PATIENT IN BATHROOM SITTING ON FLOOR,ASKED WHAT HAPPENED HE SAID HE FELL ON HIS FEET AT BATHROOM,HE SAID HIS HEAD NOT HIT SOMEWHERE,ASSESSED THE PATIENT ALERT ORIENTED X3 VERBALLY RESPONSIVE,ABLE TO ANSWER QUESTION AND MAKE NEEDS KNOWN, NO PAIN NO DISCOMFORT NOTED NO BLEEDING. HE IS ABLE TO MOVE ALL EXTREMITIES,ASSISTED BACK TO ELIZABETH CHAIR,CALLED DR SAL ORTIZ, SAID HE WILL COME AND ASSESS THE PATIENT NOTIFIED CHARGE NURSE DINAH AND NURSE SAP PLANT MAINTENANCE CONSULTANT, GUILLAUME. CONTINUE TO MONITOR PATIENT
--- NOTE | 2021-11-30 07:21 | NUR ---
RN NOTE CALLED PATIENT CHILD MANUEL CANNOT REACH HIM TO REPORT REGARDING RECENT FALL,CONTINUE TO MONITOR.
[2021-11-30 08:00] VITALS: BP 130/85
[2021-11-30] MEDS: GABAPENTIN 300 MG CAPSULE PO SCH ×4 (09:00→16:54)
[2021-11-30] MEDS: LEVETIRACETAM (250 MG) 250 MG TABLET PO SCH ×2 (09:34→21:25)
[2021-11-30] MEDS: DONEPEZIL 5 MG TABLET PO SCH (09:34)
[2021-11-30] MEDS: DOCUSATE SODIUM 100 MG CAPSULE PO SCH (09:34)
[2021-11-30] MEDS: CARBIDOPA/LEVODOPA 25/100 MG 1 UDTAB PO SCH ×3 (09:34→16:53)
[2021-11-30] MEDS: clonazePAM 0.5 MG TABLET PO SCH ×3 (09:34→16:53)
[2021-11-30] MEDS: ESCITALOPRAM OXALATE (10 MG) 10 MG TABLET PO SCH (09:38)
[2021-11-30] MEDS: MINERAL OIL/PETROLATUM,WHITE 120 GM JAR TP SCH (09:39)
--- NOTE | 2021-11-30 12:50 | NUR ---
RN NOTE DR SAL ORTIZ SEEN AND ASSESSED THE PATIENT,ORDERED HEAD CT NOTED AND CARRIED OUT.
[2021-11-30 16:00] VITALS: BP 141/83
[2021-11-30] MEDS: ASCORBIC ACID 500 MG TABLET PO SCH (18:10)
[2021-11-30] MEDS: MULTIVIT W/MINERALS 1 TAB TABLET PO SCH (18:10)
--- NOTE | 2021-11-30 19:30 | NUR ---
GPS RN NOTE, RECEIVED PATIENT AWAKE AND IN BED, NO S/S OR COMPLAINTS OF PAIN AT THIS TIME. PATIENT IS DISPLAYING NO S/S OF APPARENT DISTRESS AT THIS TIME. PATIENT BREATHING IS UNLABORED WITH EQUAL RISE AND FALL OF THE CHEST. PATIENT IS ALERT AND ORIENTED X 3 ON ROOM AIR WITH A SPO2 99%. PATIENT IS COMPLIANT WITH MEDICATIONS, ANXIOUS, LABILE, MAKES NEEDS KNOWN, DISORGANIZED, AND COOPERATIVE. PATIENT DENIES SUICIDAL AND HOMICIDAL IDEATIONS AT THIS TIME. PATIENT ASSISTED WITH TURNING AND REPOSITIONING Q2HR AND PRN FOR COMFORT AND CIRCULATION. PATIENT HAS NO NEEDS AT THIS TIME. PATIENT EDUCATED ON THE USE OF THE CALL NGUYEN. PATIENT BED SIDE RAILS UP X 2 FOR SAFETY. PATIENT BED IS LOCKED, LOW, WITH BED ALARM ON. WILL CONTINUE TO MONITOR THIS PATIENT Q15 MINUTES WITH THE HELP OF STAFF TO MAINTAIN SAFETY.
[2021-11-30 20:17] VITALS: BP 108/66
[2021-11-30] MEDS: QUETIAPINE FUMARATE 25 MG TABLET PO SCH (21:26)
[2021-12-01 08:00] VITALS: BP 99/69
[2021-12-01] MEDS: DONEPEZIL 5 MG TABLET PO SCH (08:31)
[2021-12-01] MEDS: DOCUSATE SODIUM 100 MG CAPSULE PO SCH (08:32)
[2021-12-01] MEDS: ESCITALOPRAM OXALATE (10 MG) 10 MG TABLET PO SCH (08:32)
[2021-12-01] MEDS: LEVETIRACETAM (250 MG) 250 MG TABLET PO SCH ×2 (08:32→21:48)
[2021-12-01] MEDS: clonazePAM 0.5 MG TABLET PO SCH ×3 (08:32→16:16)
[2021-12-01] MEDS: GABAPENTIN 300 MG CAPSULE PO SCH ×3 (08:32→16:16)
[2021-12-01] MEDS: CARBIDOPA/LEVODOPA 25/100 MG 1 UDTAB PO SCH ×3 (08:32→16:16)
[2021-12-01] MEDS: MINERAL OIL/PETROLATUM,WHITE 120 GM JAR TP SCH (08:33)
--- NOTE | 2021-12-01 10:21 | NUR ---
Court Notification: Pt does not have any supportive contact at this time to notify for [id number].
--- NOTE | 2021-12-01 13:28 | NUR ---
Court Hearing: Patient's court hearing for 5150 was today and it was upheld for GD.
[2021-12-01 16:00] VITALS: BP 113/67
[2021-12-01] MEDS: MULTIVIT W/MINERALS 1 TAB TABLET PO SCH (17:46)
[2021-12-01] MEDS: ASCORBIC ACID 500 MG TABLET PO SCH (17:46)
--- NOTE | 2021-12-01 19:45 | NUR ---
GPS RN NOTES RECEIVED ON MING CHAIR,A/O X3,CONVERSE WHEN ENGAGE,AMBULATE WITH UNSTEADY GAIT,HAS POOR SAFETY AWARENESS,NEEDS FREQUENT RE ORIENTATION.FREQUENT CHECK Q 15 MINUTES FOR SAFETY,WILL CONTINUE TO MONITOR BEHAVIOR.
[2021-12-01 20:00] VITALS: BP 106/71
[2021-12-01 21:15] VITALS: BP 106/71
[2021-12-01] MEDS: QUETIAPINE FUMARATE 25 MG TABLET PO SCH (21:48)
[2021-12-02 08:00] VITALS: BP 119/72
[2021-12-02] MEDS: CARBIDOPA/LEVODOPA 25/100 MG 1 UDTAB PO SCH ×3 (08:14→17:03)
[2021-12-02] MEDS: LEVETIRACETAM (250 MG) 250 MG TABLET PO SCH ×2 (08:14→21:01)
[2021-12-02] MEDS: DOCUSATE SODIUM 100 MG CAPSULE PO SCH (08:15)
[2021-12-02] MEDS: GABAPENTIN 300 MG CAPSULE PO SCH ×3 (08:15→17:03)
[2021-12-02] MEDS: ESCITALOPRAM OXALATE (10 MG) 10 MG TABLET PO SCH (08:15)
[2021-12-02] MEDS: DONEPEZIL 5 MG TABLET PO SCH (08:15)
[2021-12-02] MEDS: MINERAL OIL/PETROLATUM,WHITE 120 GM JAR TP SCH (08:28)
[2021-12-02] MEDS: clonazePAM 0.5 MG TABLET PO SCH ×2 (08:28→21:02)
--- NOTE | 2021-12-02 09:26 | NUR ---
GPS RN NOTE Patient presents as anxious and disorganized. He is hyperverbal with pressured speech. Patient is able to express his needs, but requires consistent prompting to comply with care. He has poor safety awareness and attempts to walk without an assistive device despite frequent encouragement and education. As a result, patient is seated on a jace-chair. Patient has poor insight into his mental illness and often goes on tangents during conversation. Will continue to monitor patient.
[2021-12-02 16:00] VITALS: BP 111/72
[2021-12-02] MEDS: MULTIVIT W/MINERALS 1 TAB TABLET PO SCH (17:03)
[2021-12-02] MEDS: ASCORBIC ACID 500 MG TABLET PO SCH (18:25)
[2021-12-02 20:25] VITALS: BP 105/56
[2021-12-02 21:42] VITALS: BP 110/65
[2021-12-02] MEDS: QUETIAPINE FUMARATE 25 MG TABLET PO SCH (22:11)
[2021-12-03 07:03] LABS: BASOPHILS # (AUTO) 0.1 K/uL (0.0-0.2); BASOPHILS % (AUTO) 0.7 % (0.0-2.0); EOSINOPHILS % (AUTO) 4.3 % (0.0-6.0); HEMATOCRIT 36 % (39-51); HEMOGLOBIN 12.2 g/dL (13.5-17.5); LYMPHOCYTES # (AUTO) 1.7 K/uL (0.8-4.8); LYMPHOCYTES % (AUTO) 17.1 % (20.0-44.0); MEAN CORPUSCULAR HGB CONC 34 g/dl (31.0-36.0); MEAN CORPUSCULAR VOLUME 94 fL (80-96); MONOCYTES # (AUTO) 1.1 K/uL (0.1-1.30); NEUTROPHILS # (AUTO) 6.8 K/uL (1.8-8.9); NEUTROPHILS % (AUTO) 66.9 % (43.0-81.0); PLATELET COUNT (AUTO) 269 K/uL (150-450); RED BLOOD CELL COUNT(AUTO) 3.84 MIL/uL (4.5-6.0); WHITE BLOOD COUNT (AUTO) 10.2 K/uL (4.3-11.0)
[2021-12-03 07:26] LABS: CALCIUM, SERUM 8.4 mg/dL (8.5-10.1); CREATININE 0.9 mg/dL (0.6-1.3); PHOSPHORUS 3.7 mg/dL (2.5-4.9)
[2021-12-03 08:00] VITALS: BP 109/68
[2021-12-03] MEDS: LEVETIRACETAM (250 MG) 250 MG TABLET PO SCH ×2 (08:49→20:44)
[2021-12-03] MEDS: CARBIDOPA/LEVODOPA 25/100 MG 1 UDTAB PO SCH ×3 (08:49→17:06)
[2021-12-03] MEDS: ESCITALOPRAM OXALATE (10 MG) 10 MG TABLET PO SCH (08:49)
[2021-12-03] MEDS: DOCUSATE SODIUM 100 MG CAPSULE PO SCH (08:49)
[2021-12-03] MEDS: GABAPENTIN 300 MG CAPSULE PO SCH ×3 (08:49→17:06)
[2021-12-03] MEDS: DONEPEZIL 5 MG TABLET PO SCH (08:49)
[2021-12-03] MEDS: clonazePAM 0.5 MG TABLET PO SCH (08:50)
[2021-12-03] MEDS: MINERAL OIL/PETROLATUM,WHITE 120 GM JAR TP SCH (09:42)
--- NOTE | 2021-12-03 10:00 | NUR ---
RN Notes: Received pt.asleep in bed, breathing is even and unlabored. Ate 100% for breakfast and compliant on meds. Pt. is cooperative to care and compliant with the skin treatment. Encouraged to verbalize feelings and motivated to attend group activity. Needs attended and will continue to monitor for safety.
[2021-12-03 16:04] VITALS: BP 103/66
[2021-12-03] MEDS: MULTIVIT W/MINERALS 1 TAB TABLET PO SCH (17:06)
[2021-12-03] MEDS: ASCORBIC ACID 500 MG TABLET PO SCH (17:06)
[2021-12-03 20:00] VITALS: BP 103/67
--- NOTE | 2021-12-03 20:38 | NUR ---
RN NOTES: PATIENT WATCHING TV IN DAY ROOM, EASILY AGITATED , DEPRESSED, GUARDED, BLUNTED AFFECT.DISORGNIZED, CONFUSED FORGETFUL , HYPERVERVAL , TALKING TO SELF,UNSTEADY GAIT, HIGH FALL RISK, NEEDY DEMENDING , NEEDS FREQUENTLY REDIRECTIONS DENIED SI/HI/AVH AT THIS TIME.ENCOURAGED PT. VERBALIZATION OF FEELINGS ENCOURAGED TO ATTEND IN GROUP ACTIVITIES. SAFETY PRECAUTIONS MAINTAINED. WILL CONTINUE TO MONITOR Q15MIN ROUNDS FOR SAFETY AND BEHAVIOR.
[2021-12-03] MEDS: QUETIAPINE FUMARATE 25 MG TABLET PO SCH (21:12)
[2021-12-04 08:00] VITALS: BP 108/69
[2021-12-04] MEDS: CARBIDOPA/LEVODOPA 25/100 MG 1 UDTAB PO SCH ×3 (08:02→17:10)
[2021-12-04] MEDS: LEVETIRACETAM (250 MG) 250 MG TABLET PO SCH ×2 (08:02→20:40)
[2021-12-04] MEDS: ESCITALOPRAM OXALATE (10 MG) 10 MG TABLET PO SCH (08:03)
[2021-12-04] MEDS: DOCUSATE SODIUM 100 MG CAPSULE PO SCH (08:03)
[2021-12-04] MEDS: GABAPENTIN 300 MG CAPSULE PO SCH ×3 (08:03→17:10)
[2021-12-04] MEDS: DONEPEZIL 5 MG TABLET PO SCH (08:03)
[2021-12-04] MEDS: MINERAL OIL/PETROLATUM,WHITE 120 GM JAR TP SCH (09:14)
--- NOTE | 2021-12-04 09:45 | NUR ---
RN Notes: Received pt.awakep in bed, responsive to staffs, no distress and no agitation noted. Ate 100% for breakfast, compliant on meds. Pt. is cooperative to care and compliant with the skin treatment. Encouraged to verbalize feelings and motivated to attend group activity. Pt. wanted to watch TV and brought in the dining to watch tv. Needs attended and will continue to monitor for safety.
[2021-12-04 16:00] VITALS: BP 120/67
[2021-12-04] MEDS: MULTIVIT W/MINERALS 1 TAB TABLET PO SCH (17:10)
[2021-12-04] MEDS: ASCORBIC ACID 500 MG TABLET PO SCH (17:10)
[2021-12-04 20:19] VITALS: BP 115/60
[2021-12-04] MEDS: QUETIAPINE FUMARATE 25 MG TABLET PO SCH (21:33)
[2021-12-05] MEDS: LEVETIRACETAM (250 MG) 250 MG TABLET PO SCH ×2 (08:27→21:05)
[2021-12-05] MEDS: DOCUSATE SODIUM 100 MG CAPSULE PO SCH (08:27)
[2021-12-05] MEDS: DONEPEZIL 5 MG TABLET PO SCH (08:27)
[2021-12-05] MEDS: ESCITALOPRAM OXALATE (10 MG) 10 MG TABLET PO SCH (08:28)
[2021-12-05] MEDS: CARBIDOPA/LEVODOPA 25/100 MG 1 UDTAB PO SCH ×3 (08:28→16:26)
[2021-12-05] MEDS: GABAPENTIN 300 MG CAPSULE PO SCH ×3 (08:28→16:26)
[2021-12-05] MEDS: MINERAL OIL/PETROLATUM,WHITE 120 GM JAR TP SCH (08:35)
[2021-12-05 16:00] VITALS: BP 117/69
[2021-12-05] MEDS: ASCORBIC ACID 500 MG TABLET PO SCH (17:15)
[2021-12-05] MEDS: MULTIVIT W/MINERALS 1 TAB TABLET PO SCH (17:15)
--- NOTE | 2021-12-05 19:15 | NUR ---
GPS RN NOTES RECEIVED PATIENT IN THE DINING ROOM WATCHING TV. ALERT AND ORIENTED X2, ABLE TO EXPRESS NEEDS AND HAS POOR SAFETY AWARENESS. NO S/SX OF ACUTE DISTRESS NOTED. PATIENT EASILY GETS IRRITABLE, ANXIOUS, DEPRESSED AND GUARDED. DENIES SI/HI/AVH. SAFETY PRECAUTIONS MAINTAINED. WILL CONTINUE TO MONITOR Q15MIN ROUNDS FOR SAFETY AND BEHAVIOR.
[2021-12-05 19:41] VITALS: BP 117/73
--- NOTE | 2021-12-05 20:00 | NUR ---
GPS RN NOTES PATIENT REFUSED WEEKLY SKIN ASSESSMENT.
[2021-12-05] MEDS: QUETIAPINE FUMARATE 25 MG TABLET PO SCH (21:06)
[2021-12-06 08:00] VITALS: BP 108/53
[2021-12-06] MEDS: CARBIDOPA/LEVODOPA 25/100 MG 1 UDTAB PO SCH ×3 (08:39→17:10)
[2021-12-06] MEDS: LEVETIRACETAM (250 MG) 250 MG TABLET PO SCH ×2 (08:39→21:16)
[2021-12-06] MEDS: GABAPENTIN 300 MG CAPSULE PO SCH ×3 (08:39→17:10)
[2021-12-06] MEDS: ESCITALOPRAM OXALATE (10 MG) 10 MG TABLET PO SCH (08:40)
[2021-12-06] MEDS: DONEPEZIL 5 MG TABLET PO SCH (08:40)
[2021-12-06] MEDS: DOCUSATE SODIUM 100 MG CAPSULE PO SCH (08:40)
--- NOTE | 2021-12-06 09:18 | NUR ---
RN-CO: PATIENT DENIED PAIN AND DISCOMFORTS, COMPLIANT WITH HIS MEDICATIONS.HE IS SOCIALIZING WITH PEERS AND MOSTLY IN THE DINING ROOM WATCHING TV. HE IS SOMEWHAT BETTER COMPARED LAST WEEK. WE WILL CONTINUE TO MONITOR.
[2021-12-06] MEDS: MINERAL OIL/PETROLATUM,WHITE 120 GM JAR TP SCH (09:44)
[2021-12-06 16:00] VITALS: BP 107/68
[2021-12-06] MEDS: MULTIVIT W/MINERALS 1 TAB TABLET PO SCH (17:10)
[2021-12-06] MEDS: ASCORBIC ACID 500 MG TABLET PO SCH (17:10)
[2021-12-06 19:59] VITALS: BP 126/77
[2021-12-06 20:20] VITALS: BP 126/77
[2021-12-06] MEDS: QUETIAPINE FUMARATE 25 MG TABLET PO SCH (22:36)
[2021-12-07 08:00] VITALS: BP 114/71
--- NOTE | 2021-12-07 08:05 | NUR ---
RN OPENING NOTE PATIENT AWAKE IN BED RESTING. A/O X 2, CONFUSED, FORGETFUL, EASILY AGITATED. NO S/S OF PAIN NOTED AT THIS TIME. ON ROOM AIR, NO DISTRESS OR SHORTNESS OF BREATH NOTED. PATIENT IS COMPLIANT WITH MEDICATIONS. PATIENT DENIES SUICIDE IDEATION AND HOMICIDAL IDEATIONS AT THIS TIME. FALL AND SAFETY MEASURES IN PLACE, BED ALARM ON, BED IN LOW AND LOCK POSITION, CALL LIGHT AND TABLE WITHIN EASY REACH, SIDE RAILS UP X2. WILL CONTINUE TO MONITOR Q15 MINUTES WITH HELP OF STAFF TO MAINTAIN SAFETY.
[2021-12-07] MEDS: DOCUSATE SODIUM 100 MG CAPSULE PO SCH (08:32)
[2021-12-07] MEDS: LEVETIRACETAM (250 MG) 250 MG TABLET PO SCH ×2 (08:32→21:10)
[2021-12-07] MEDS: DONEPEZIL 5 MG TABLET PO SCH (08:32)
[2021-12-07] MEDS: MINERAL OIL/PETROLATUM,WHITE 120 GM JAR TP SCH (08:33)
[2021-12-07] MEDS: ESCITALOPRAM OXALATE (10 MG) 10 MG TABLET PO SCH (08:33)
[2021-12-07] MEDS: CARBIDOPA/LEVODOPA 25/100 MG 1 UDTAB PO SCH ×3 (08:33→17:00)
[2021-12-07] MEDS: GABAPENTIN 300 MG CAPSULE PO SCH ×3 (08:33→17:01)
[2021-12-07 16:02] VITALS: BP 101/66
[2021-12-07] MEDS: ASCORBIC ACID 500 MG TABLET PO SCH (17:00)
[2021-12-07] MEDS: MULTIVIT W/MINERALS 1 TAB TABLET PO SCH (17:00)
--- NOTE | 2021-12-07 19:15 | NUR ---
GPS RN NOTES RECEIVED PATIENT IN THE DINING ROOM WATCHING TV. A/OX2, ABLE TO EXPRESS NEEDS AND HAS POOR SAFETY AWARENESS. NO S/SX OF ACUTE DISTRESS NOTED. PT IS ANXIOUS AT TIMES, SOCIALIZING WITH PEERS, DENIES BEING SUICIDAL AND HOMICIDAL. SAFETY PRECAUTIONS MAINTAINED. WILL CONTINUE TO MONITOR Q15MIN ROUNDS FOR SAFETY AND BEHAVIOR.
[2021-12-07] MEDS: QUETIAPINE FUMARATE 25 MG TABLET PO SCH (21:10)
[2021-12-08 08:00] VITALS: BP 115/69
--- NOTE | 2021-12-08 08:06 | NUR ---
SW Discharge Note: Patient will be discharged to [facility] [address], [place] [address] ([phone]). Please arrange ambulance transportation at 1PM. Spoke with Sandra, Admin Coordinator at the facility who states they are ready to accept the patient today. Patient has no supportive contact at this time. Patient is alert and oriented x2. Patient denies any suicidal or homicidal ideation. Patient will follow-up at the facility with Dr. Saucedo (psychiatrist) [address] [address]; ([phone]) and (Gyroscopic Engineering Technician) Dr. London [address] [facility] [address], [place] [address]; ([phone]). Patient presents with euthymic mood and congruent affect.
--- NOTE | 2021-12-08 08:45 | NUR ---
RN-CO: DR Saucedo seen and examined patient with orders to discontinue hold and discharge patient today to SNF, noted and carried out. Patient continued to denied suicidal and homicidal ideation. He also denied auditory and visual hallucination. He is calm and cooperative to care. He denied pain and discomforts, medically cleared by Dr London for discharge. All belongings will be given back to the patient.
[2021-12-08] MEDS: GABAPENTIN 300 MG CAPSULE PO SCH ×3 (09:09→12:39)
[2021-12-08] MEDS: DONEPEZIL 5 MG TABLET PO SCH (09:09)
[2021-12-08] MEDS: ESCITALOPRAM OXALATE (10 MG) 10 MG TABLET PO SCH (09:09)
[2021-12-08] MEDS: CARBIDOPA/LEVODOPA 25/100 MG 1 UDTAB PO SCH ×2 (09:09→12:24)
[2021-12-08] MEDS: DOCUSATE SODIUM 100 MG CAPSULE PO SCH (09:09)
[2021-12-08] MEDS: LEVETIRACETAM (250 MG) 250 MG TABLET PO SCH (09:09)
[2021-12-08] MEDS: MINERAL OIL/PETROLATUM,WHITE 120 GM JAR TP SCH (09:10)
--- NOTE | 2021-12-08 13:15 | NUR ---
BLENDING TECHNICIAN NOTES GIVEN REPORT TO MACHO GUTHRIE FROM [facility] FOR PATIENT'S DISCHARGE INFORMATION. PATIENT IN THE DINING ROOM WATCHING TV AND A/O X2. ON ROOM AIR TOLERATING WELL. NO SOB NOTED. NOT IN DISTRESS. WITH STABLE VITAL SIGNS. PATIENT IS ABLE TO EXPRESS NEEDS BUT EASILY IRRITABLE. AMBULATORY WITH WALKER BUT WITH UNSTEADY GAIT, HIGH FALL RISK. MED RECON PROVIDED AND DISCHARGE INSTRUCTIONS PROVIDED TO THE PATIENT. AMBULANCE PERSONNEL TRANSPORTED PATIENT IN STABLE CONDITION VIA GURNEY. MD AND CHARGE NURSE ARE AWARE OF THE DISCHARGE.
== END 2021-12-08 13:15 | DRG 885 ==
LOC: ER 12:13 → GPS 15:28
PROVIDERS: ADMIT Psychiatry & Neurology Psychiatry; ATTEND Nurse Practitioner Acute Care
PROC: 0HBNXZZ Excision of Left Foot Skin, External Approach (ICD-10-PCS; principal; 2021-11-26)
PROC: 0HBMXZZ Excision of Right Foot Skin, External Approach (ICD-10-PCS; 2021-11-26)
DX: F33.3 Major depressive disorder, recurrent, severe with psychotic symptoms (principal); N17.0 Acute kidney failure with tubular necrosis; R45.851 Suicidal ideations; F39 Unspecified mood [affective] disorder; F02.80 Dementia in other diseases classified elsewhere, unspecified severity, without behavioral disturbance, psychotic disturbance, mood disturbance, and anxiety; F43.10 Post-traumatic stress disorder, unspecified; G40.909 Epilepsy, unspecified, not intractable, without status epilepticus; G62.9 Polyneuropathy, unspecified; M79.672 Pain in left foot; F41.9 Anxiety disorder, unspecified; M79.671 Pain in right foot; R26.9 Unspecified abnormalities of gait and mobility; L84 Corns and callosities; G31.83 Neurocognitive disorder with Lewy bodies; Z20.822 Contact with and (suspected) exposure to COVID-19
CPT/HCPCS: 36415; 70450-TC; 80048-TC; 80053-TC; 80061-TC; 80076-TC; 81001; 83735-TC; 84100-TC; 85025-TC; 87081-TC; 87086-TC; 97116-TC; 97530-TC; C9803; G0480

== ENCOUNTER 2022-01-21 13:36 | Inpatient (IN) | payer MEDICARE, OTHER ==
[~2022-01-21] VITALS: Ht 167.6 cm; Wt 70.3 kg
[~2022-01-21 13:36] MED LIST changes: -CLON0.5T PO; -DULO30CA2 PO; -HYDR25CA PO
--- NOTE | 2022-01-21 13:50 | NUR ---
REceving pt 66 yrs male came from snf for pschy evaluation coohearn cooprative unhappy for been in ED
--- NOTE | 2022-01-21 13:55 | NUR ---
URINE COLLECTED AND COVID SWAB DONE AND SENT TO LAB
[2022-01-21] MEDS ORDERED: QUET100T PO (14:14)
[2022-01-21] MEDS ORDERED: ESCI10TA PO (14:14)
--- NOTE | 2022-01-21 14:25 | NUR ---
BLOOD DROW BY LAB TACH
[2022-01-21 14:31] LABS: BASOPHILS % (AUTO) 0.4 % (0.0-2.0); EOSINOPHILS % (AUTO) 1.2 % (0.0-6.0); HEMATOCRIT 39 % (39-51); LYMPHOCYTES # (AUTO) 1.9 K/uL (0.8-4.8); LYMPHOCYTES % (AUTO) 17.2 % (20.0-44.0); MEAN CORPUSCULAR HGB CONC 33 g/dl (31.0-36.0); MEAN CORPUSCULAR VOLUME 92 fL (80-96); MONOCYTES # (AUTO) 0.9 K/uL (0.1-1.30); MONOCYTES % (AUTO) 8.2 % (2.0-12.0); NEUTROPHILS # (AUTO) 7.9 K/uL (1.8-8.9); PLATELET COUNT (AUTO) 309 K/uL (150-450); RED BLOOD CELL COUNT(AUTO) 4.28 MIL/uL (4.5-6.0); WHITE BLOOD COUNT (AUTO) 10.8 K/uL (4.3-11.0)
[2022-01-21 14:46] LABS: BILIRUBIN,URINE NEGATIVE (NEGATIVE); COLOR,URINE YELLOW (YELLOW); LEUKOCYTE ESTERASE ,URINE NEGATIVE (NEGATIVE); NITRITE, URINE NEGATIVE (NEGATIVE); PH,URINE 5.5 (5.0-8.0); PROTEIN,URINE NEGATIVE (NEGATIVE); UGLUCOSE NEGATIVE (NEGATIVE); UROBILINOGEN,URINE 0.2 EU/dL (0.2)
--- NOTE | 2022-01-21 14:48 | NUR ---
URINE SAMPLE SENT TO LAB
[2022-01-21 14:52] LABS: ALANINE AMINOTRANSFERASE 13 U/L (12-78); ALBUMIN 3.4 g/dL (3.4-5.0); ALCOHOL, BLOOD < 3 mg/dL (0-0); ALKALINE PHOSPHATASE 73 U/L (46-116); ASPARTATE AMINOTRANSFERASE 25 U/L (15-37); BILIRUBIN,DIRECT 0.1 mg/dL (0.0-0.2); BILIRUBIN,TOTAL 0.3 mg/dL (0.2-1.0); CALCIUM, SERUM 8.7 mg/dL (8.5-10.1); CARBON DIOXIDE 30 mmol/L (21-32); CHLORIDE 105 mmol/L (98-107); CREATININE 1.3 mg/dL (0.6-1.3); GLUCOSE 120 mg/dL (74-106); POTASSIUM 4.2 mmol/L (3.5-5.1); SODIUM SERUM 141 mmol/L (136-145); TOTAL PROTEIN, SERUM 7.2 g/dL (6.4-8.2); UREA NITROGEN, BLOOD 23 mg/dL (7-18)
[2022-01-21 15:03] LABS: ACETAMINOPHEN < 10 ug/ml (10-30)
--- NOTE | 2022-01-21 15:50 | NUR ---
MOVE SHEET SUBMITTED.
[2022-01-21] MEDS ORDERED: BISACODYL SUPP (10 MG) 10 MG/SUPP.RECT SUPP.RECT RC PRN (19:00)
[2022-01-21] MEDS ORDERED: NA PHOS,M-B/NA PHOS,DI-BA 1 EA ENEMA RC PRN (19:00)
[2022-01-21] MEDS ORDERED: MAGNESIUM HYDROXIDE 30 ML UDC PO PRN ×2 (19:00→21:00)
[2022-01-21] MEDS ORDERED: ACETAMINOPHEN 325 MG TABLET PO PRN ×2 (19:00→21:00)
--- NOTE | 2022-01-21 19:03 | NUR ---
CLINICIAN SHEREE AT BEDSIDE FOR EVAL
--- NOTE | 2022-01-21 19:30 | NUR ---
HAND OFF SHARRI PRITCHARD
--- NOTE | 2022-01-21 20:29 | NUR ---
REPORT GIVEN TO NURSE LEE FOR CLEMENTE
--- NOTE | 2022-01-21 20:41 | NUR ---
GPS RN NOTE, PATIENT STATES, " I HEAR VOICES OFF AND ON TELLING ME TO GO SMOKE AND TELLING I'M NO GOOD ". WILL CONTINUE TO MONITOR THIS PATIENT WITH THE HELP OF STAFF.
--- NOTE | 2022-01-21 20:45 | NUR ---
PT TRANSPORTED TO UNIT ON WHEELCHAIR WITH EMT ON STABLE CONDITION
[2022-01-21] MEDS ORDERED: MAG HYDROX/AL HYDROX/SIMETH 30 ML UDC PO PRN (21:00)
[2022-01-21] MEDS ORDERED: OLANZAPINE 10 MG VIAL IM ONE (21:00)
[2022-01-21 21:15] VITALS: BP 127/80
[2022-01-21 21:21] VITALS: BP 127/80
[2022-01-21] MEDS: LEVETIRACETAM (250 MG) 250 MG TABLET PO SCH (21:25)
[2022-01-21] MEDS ORDERED: BLOOD SUGAR DIAGNOSTIC 1 EACH STRIP IN ONE (21:30)
[2022-01-21] MEDS ORDERED: LORAZEPAM 1 MG TABLET PO PRN (21:30)
--- NOTE | 2022-01-21 22:00 | NUR ---
GPS MUTUAL FUND ANALYST NOTES: RECEIVED PATIENT FROM ER, ORIGINALLY FROM THE [facility]. PATIENT IS ON A 5150 HOLD FOR DTO/GD. PER 5150 HOLD, PATIENT WAS CALM, HE WAS INITIALLY CONFUSED, BUT STARTED TO ENGAGE. HE REPORTS HE DID NOT FEEL LIKE BEING AT THE FACILITY SO HE WAS REFUSING TO COMPLY WITH THEIR DIRECTIVES. HE REPORTS TODAY HE PUT A BAG OVER HIS HEAD AND TOLD THEM HE WILL KILL HIMSELF SO HE COULD GET OUT OF THE FACILITY. PATIENT WAS CONFUSED ABOUT SOME MEDICAL INFORMATION ASKED. PATIENT'S NURSE REPORTS PATIENT IS AGGRESSIVE TOWARDS STAFF, REFUSING HIS MEDS, YELLING AND SCREAMING AND OFTEN IMPULSIVE. SHE REPORTS TODAY HE PUT A BAG OVER HIS HEAD . PATIENT IS DX WITH SCHIZOAFFECTIVE DISORDER WITH PSYCHOSIS, ANXIETY, AND MDD. PATIENT IS PRESCRIBED GABAPENTIN, LEXAPRO, SEROQUEL. UPON FACE TO FACE EVALUATION, PATIENT IS ALERT AND ORIENTED X 2, COOPERATIVE BUT CONFUSED, LABILE, DISORGANIZED, ANXIOUS RESTLESS AT TIMES BUT REDIRECTABLE AT THIS TIME. PATIENT DENIES SUICIDAL IDEATIONS UPON ADMISSION AND WILLING TO CONTRACT FOR SAFETY. PATIENT HAS NO S/S OF PAIN. DENIES SI/HI AT THIS TIME. NO S/S OF RESPIRATORY DISTRESS. ON ROOM AIR. PATIENT REFUSED TO SIGN ALL ADMISSION PAPER WORK. SKIN INTACT, BS 98MG/DL. PATIENT ADVISED OF HIS HOLD AND PATIENT RIGHTS BOOKLET AND PRESCRIPTION MEDICATION GUIDE GIVEN. PATIENT IS UNDER THE PSYCHIATRIC CARE OF DR. MOHAN AND MEDICAL CARE OF DR HALL. BOTH DOCTORS HAVE BEEN INFORMED OF PATIENT ADMISSION AND ORDERS CARRIED OUT. PATIENT BELONGINGS WERE INVENTORIED AND CHECKED FOR CONTRABAND. PATIENT ADVANCED DIRECTIVES PREFERENCE, IMMUNIZATIONS QUESTIONER, NECESSARY PAPERWORK COMPLETED. PATIENT ORIENTED TO ROOM. PATIENT EDUCATED ON THE USE OF THE CALL NGUYEN. AMBULATORY/UNSTEADY GAIT, USES WALKER. PATIENT BED IS LOCKED AND IN LOWEST POSITION, BED ALARM IS ON. SIDE RAILS UP X2 FOR SAFETY. ALL PATIENT CARE NEEDS HAVE BEEN MET ANTICIPATED. WILL CONTINUE TO MONITOR Q15 MINS FOR SAFETY, MOOD AND BEHAVIOR.
[2022-01-22] MEDS: ZOLPIDEM TARTRATE 5 MG TABLET PO PRN ×2 (00:14→21:58)
--- NOTE | 2022-01-22 00:19 | NUR ---
RN NOTE: INSOMNIA PATIENT C/O INABILITY TO SLEEP. RESTLESS. PRN AMBIEN 5 MG PO ADMINISTERED.
--- NOTE | 2022-01-22 07:23 | NUR ---
RN NOTE: CALLED MANUEL TAVAREZ AT [phone] BUT VOICEMAIL SAID," THE SUBSCRIBER YOU CALLED IS NOT IN SERVICE.'
[2022-01-22 08:00] VITALS: BP 104/67
[2022-01-22] MEDS: DONEPEZIL 5 MG TABLET PO SCH (08:07)
[2022-01-22] MEDS: LEVETIRACETAM (250 MG) 250 MG TABLET PO SCH ×2 (08:07→21:20)
[2022-01-22] MEDS: CARBIDOPA/LEVODOPA 25/100 MG 1 UDTAB PO SCH ×3 (08:07→16:38)
[2022-01-22] MEDS: DOCUSATE SODIUM 100 MG CAPSULE PO SCH (08:07)
[2022-01-22] MEDS: GABAPENTIN 300 MG CAPSULE PO SCH ×3 (08:07→16:38)
[2022-01-22] MEDS ORDERED: Medication Not On Formulary EA (Pimavanserin Tartrate (Nuplazid) 34 MG) PO SCH (09:00)
[2022-01-22] MEDS ORDERED: Medication Not On Formulary EA (Cranberry Extract (Cranberry) 425 MG) PO SCH (09:00)
[2022-01-22] MEDS: ESCITALOPRAM OXALATE (10 MG) 10 MG TABLET PO SCH (14:24)
[2022-01-22 16:00] VITALS: BP 115/74
--- NOTE | 2022-01-22 18:09 | NUR ---
RN-NOTES PATIENT VISIBLE IN THE UNIT A/O X2,CALM,COOPERATIVE PARTICIPATES WITH THE GROUP ACTIVITIES,NO ACUTE DISTRESS NOTED.COMPLIANT WITH MEDICATIONS.NEED MODERATE ASSIST WITH ADL'S.AMBULATORY USING WALKER.ALL NEEDS ATTENDED AND ANTICIPATED.WILL CONT. MONITORING FOR SAFETY AND BEHAVIOR.WILL ENDORSE TO INCOMING NURSE FOR CONTINUITY OF CARE.
--- NOTE | 2022-01-22 19:15 | NUR ---
GPS RN NOTES RECEIVED PATIENT IN THE DINING ROOM WATCHING TV. A/OX2, NO S/SX OF ACUTE DISTRESS NOTED. PATIENT APPEARS DEPRESSED, GUARDED, COOPERATIVE TO CARE. NO VERBALIZATION OF THOUGHTS OR FEELINGS. SAFETY PRECAUTIONS MAINTAINED. WILL CONTINUE TO MONITOR Q15MIN ROUNDS FOR SAFETY AND BEHAVIOR.
[2022-01-22 20:58] VITALS: BP 105/60
[2022-01-22] MEDS: QUETIAPINE FUMARATE 100 MG TABLET PO SCH (21:20)
[2022-01-23 07:16] LABS: BASOPHILS # (AUTO) 0.1 K/uL (0.0-0.2); BASOPHILS % (AUTO) 0.8 % (0.0-2.0); EOSINOPHILS % (AUTO) 4.4 % (0.0-6.0); HEMATOCRIT 39 % (39-51); HEMOGLOBIN 12.7 g/dL (13.5-17.5); LYMPHOCYTES # (AUTO) 1.9 K/uL (0.8-4.8); MEAN CORPUSCULAR HGB CONC 33 g/dl (31.0-36.0); MEAN CORPUSCULAR VOLUME 93 fL (80-96); MONOCYTES % (AUTO) 12.1 % (2.0-12.0); NEUTROPHILS # (AUTO) 4.7 K/uL (1.8-8.9); NEUTROPHILS % (AUTO) 58.7 % (43.0-81.0); PLATELET COUNT (AUTO) 305 K/uL (150-450); RED BLOOD CELL COUNT(AUTO) 4.19 MIL/uL (4.5-6.0)
[2022-01-23 08:00] VITALS: BP 120/74
[2022-01-23 08:22] LABS: CALCIUM, SERUM 8.5 mg/dL (8.5-10.1); CREATININE 1.2 mg/dL (0.6-1.3)
[2022-01-23] MEDS: CARBIDOPA/LEVODOPA 25/100 MG 1 UDTAB PO SCH ×3 (09:24→16:31)
[2022-01-23] MEDS: ESCITALOPRAM OXALATE (10 MG) 10 MG TABLET PO SCH (09:24)
[2022-01-23] MEDS: DOCUSATE SODIUM 100 MG CAPSULE PO SCH (09:24)
[2022-01-23] MEDS: DONEPEZIL 5 MG TABLET PO SCH (09:24)
[2022-01-23] MEDS: LEVETIRACETAM (250 MG) 250 MG TABLET PO SCH ×2 (09:24→20:21)
[2022-01-23] MEDS: GABAPENTIN 300 MG CAPSULE PO SCH ×3 (09:24→16:31)
[2022-01-23 16:00] VITALS: BP 115/71
[2022-01-23 20:33] VITALS: BP 107/68
[2022-01-23] MEDS: QUETIAPINE FUMARATE 100 MG TABLET PO SCH (21:10)
--- NOTE | 2022-01-24 03:51 | NUR ---
RN note: Patient is compliant with medications but appears to be depressed with blunted affect.No s/s of acute distress noted.Will continue to monitor q15 min rounds for safety.
[2022-01-24 08:00] VITALS: BP 146/72
[2022-01-24] MEDS: DONEPEZIL 5 MG TABLET PO SCH (08:54)
[2022-01-24] MEDS: ESCITALOPRAM OXALATE (10 MG) 10 MG TABLET PO SCH (08:55)
[2022-01-24] MEDS: DOCUSATE SODIUM 100 MG CAPSULE PO SCH (08:55)
[2022-01-24] MEDS: LEVETIRACETAM (250 MG) 250 MG TABLET PO SCH ×2 (08:55→21:17)
[2022-01-24] MEDS: GABAPENTIN 300 MG CAPSULE PO SCH ×3 (08:55→17:37)
[2022-01-24] MEDS: CARBIDOPA/LEVODOPA 25/100 MG 1 UDTAB PO SCH ×3 (08:55→17:37)
--- NOTE | 2022-01-24 10:12 | NUR ---
MAMIE Initial Discharge Plan: Patient currently resides at [facility] [address] [place] [address] ([phone]). Pt has multiple case workers who are working on pt's placement. SW will be in touch with the case workers Any ([phone]) and Sandra ([phone]). Pt does not want to return back to [facility] and wants a different placement. MAMIE will work the the MD and pt to help coordinate appropriate discharge.
--- NOTE | 2022-01-24 10:12 | NUR ---
MAMIE Clinical Note: Pt placed on a 5150 hold for danger to others and GD. Pt was aggressive at this facility. Patient currently resides at [facility] [id number] [place] [address] ([phone]). Pt has multiple case workers who are working on pt's placement. SW will be in touch with the case workers Any ([phone]) and Sandra ([phone]). Pt does not want to return back to [facility] and wants a different placement.
--- NOTE | 2022-01-24 10:13 | NUR ---
Treatment Plan: Pt refused to sign treatment plan and was suspicious.
--- NOTE | 2022-01-24 11:42 | NUR ---
Telegraph And Teletype Operator: SW attempted to contact pt's outpatient case manager Sandra ([phone]) and left a voicemail to discuss treatment/discharge plan.
--- NOTE | 2022-01-24 12:06 | NUR ---
Grooving Lathe Tender: MAMIE contacted Director Michael ([phone]) who is the director and the machine adjuster leader case trim for pt. She reported that she was unsure that [facility] did not want pt back. She reported that pt's outpatient psychiatrist submitted capacity of declaration over 6 months ago. She stated guardianship was submitted for but unsure how long the process will take. She stated pt will be needing a different facility. MAMIE will work with Michael to find appropriate placement.
[2022-01-24 16:00] VITALS: BP 118/74
--- NOTE | 2022-01-24 19:52 | NUR ---
RN NOTE: ANXIETY PATIENT NOTED TO BE ANXIOUS AND RESTLESS. PRN ATIVAN 1 MG PO GIVEN. WILL CONTINUE TO MONITOR.
[2022-01-24 19:55] VITALS: BP 117/78
[2022-01-24] MEDS: QUETIAPINE FUMARATE 100 MG TABLET PO SCH (21:27)
[2022-01-24 22:53] VITALS: BP 117/78
[2022-01-25 08:00] VITALS: BP 90/59
[2022-01-25] MEDS: LEVETIRACETAM (250 MG) 250 MG TABLET PO SCH ×2 (09:23→21:20)
[2022-01-25] MEDS: DOCUSATE SODIUM 100 MG CAPSULE PO SCH (09:29)
[2022-01-25] MEDS: DONEPEZIL 5 MG TABLET PO SCH (09:29)
[2022-01-25] MEDS: GABAPENTIN 300 MG CAPSULE PO SCH ×3 (09:32→17:08)
[2022-01-25] MEDS: ESCITALOPRAM OXALATE (10 MG) 10 MG TABLET PO SCH (09:33)
[2022-01-25] MEDS: CARBIDOPA/LEVODOPA 25/100 MG 1 UDTAB PO SCH ×3 (09:35→17:08)
--- NOTE | 2022-01-25 09:52 | NUR ---
MAMIE Family Contact: SW attempted to contact pt's brother in law Dvelissa ([phone]) but phone number does not work.
--- NOTE | 2022-01-25 10:05 | NUR ---
SNF Referral: MAMIE sent clinicals to Puma Zhang from [facility] ([phone]) for placement. SW sent H & P, progress notes, and medication list.
--- NOTE | 2022-01-25 10:56 | NUR ---
SNF Contact: SW received a call from Puma Zhang from [facility] ([phone]) who stated that pt is accepted.
[2022-01-25 16:12] VITALS: BP 110/63
--- NOTE | 2022-01-25 19:15 | NUR ---
GPS RN NOTES RECEIVED PATIENT IN THE DINING ROOM WATCHING TV. A/OX2, NO S/SX OF ACUTE DISTRESS NOTED. PATIENT APPEARS DEPRESSED, GUARDED, COOPERATIVE TO CARE, SOCIALLY INTERACTING WITH PEERS, BLUNTED AFFECT. NO VERBALIZATION OF THOUGHTS AND FEELINGS. SAFETY PRECAUTIONS MAINTAINED. WILL CONTINUE TO MONITOR Q15MIN ROUNDS FOR SAFETY AND BEHAVIOR.
[2022-01-25] MEDS: QUETIAPINE FUMARATE 100 MG TABLET PO SCH (21:20)
[2022-01-25 22:26] VITALS: BP 107/64
[2022-01-26 08:00] VITALS: BP 105/67
[2022-01-26] MEDS: GABAPENTIN 300 MG CAPSULE PO SCH ×3 (08:11→16:18)
[2022-01-26] MEDS: LEVETIRACETAM (250 MG) 250 MG TABLET PO SCH ×2 (08:11→21:45)
[2022-01-26] MEDS: DONEPEZIL 5 MG TABLET PO SCH (08:11)
[2022-01-26] MEDS: CARBIDOPA/LEVODOPA 25/100 MG 1 UDTAB PO SCH ×3 (08:11→16:18)
[2022-01-26] MEDS: ESCITALOPRAM OXALATE (10 MG) 10 MG TABLET PO SCH (08:11)
[2022-01-26] MEDS: DOCUSATE SODIUM 100 MG CAPSULE PO SCH (08:11)
--- NOTE | 2022-01-26 10:06 | NUR ---
RN-CO: PATIENT IS VISIBLE IN THE UNIT, REDIRECTABLE AND COMPLAINT WITH MEDICATIONS AND TREATMENT. HE CAN BE NEEDY AND GUARDED OTHERWISE HE IS POLITE TO STAFF AND PEERS. I WILL CONTINUE TO MONITOR.
--- NOTE | 2022-01-26 10:41 | NUR ---
Traffic Counter: SW contacted Director Michael ([phone]) notified that pt is accepted at [facility]. She is agreeable of this.
[2022-01-26 16:00] VITALS: BP 103/57
--- NOTE | 2022-01-26 19:38 | NUR ---
GPS RN OPENING NOTES: RECEIVED PATIENT LAYING IN BED, AWAKE A/O X2. PATIENT APPEARS DEPRESSED, FLAT AFFECT, PASSIVE, ISOLATIVE, PARANOID, DISORGANIZED. DENIES SI/ HI AT THIS TIME. DENIES PAIN. NO S/S OF DISTRESS. RESPIRATION EVEN AND UNLABORED WITH EQUAL RISE AND FALL OF THE CHEST, ON ROOM AIR. PATIENT IS OFFERED FLUID AND SNACKS TOLERATED. BED IN LOWEST POSITION AND LOCKED, SIDE RAILS UP X2 FOR SAFETY, CALL NGUYEN WITHIN REACH. WILL CONTINUE TO MONITOR Q15 MINS FOR MOOD, BEHAVIOR AND SAFETY.
[2022-01-26 20:00] VITALS: BP 104/57
[2022-01-26] MEDS: QUETIAPINE FUMARATE 100 MG TABLET PO SCH (22:46)
--- NOTE | 2022-01-26 22:49 | NUR ---
GPS RN NOTES SEROQUEL 50MG WASTED PER PARTIAL DOSE ORDER.
[2022-01-27 08:00] VITALS: BP 105/65
--- NOTE | 2022-01-27 08:41 | NUR ---
WOUND CARE CONSULT: PT PRESENTS WITH PAINFUL CALLUS TO RT PLANTAR FOOT, PRESENT ON ADMISSION. DR PIERRE CALLED FOR DPM CONSULT REQUEST. IN AGREEMENT WITH PLAN OF CARE.
[2022-01-27] MEDS: LEVETIRACETAM (250 MG) 250 MG TABLET PO SCH ×2 (08:43→20:51)
[2022-01-27] MEDS: CARBIDOPA/LEVODOPA 25/100 MG 1 UDTAB PO SCH ×3 (08:43→16:15)
[2022-01-27] MEDS: ESCITALOPRAM OXALATE (10 MG) 10 MG TABLET PO SCH (08:43)
[2022-01-27] MEDS: GABAPENTIN 300 MG CAPSULE PO SCH ×3 (08:43→16:16)
[2022-01-27] MEDS: DONEPEZIL 5 MG TABLET PO SCH (08:43)
[2022-01-27] MEDS: DOCUSATE SODIUM 100 MG CAPSULE PO SCH (08:43)
--- NOTE | 2022-01-27 09:26 | NUR ---
Court Hearing: Patient's court hearing for 0630 was today and it was upheld for GD.
--- NOTE | 2022-01-27 09:26 | NUR ---
Court Notification: Pt does not have any supportive contact.
--- NOTE | 2022-01-27 10:05 | NUR ---
Received pt. awake in the room, responsive to staffs, no distress and no agitation noted. Ate 100% for breakfast, compliant on meds and cooperative with care. Encouraged to verbalize feelings and motivated to attend group activity. Pt. seen in the dining room and watching tv, needs attended and will continue to monitor for safety.
--- NOTE | 2022-01-27 12:12 | NUR ---
MAMIE Family Contact: MAMIE spoke with patient's brother in law Bhupendra ([phone]) and notified that pt cannot return back to [facility]. MAMIE notified pt is accepted at [facility]. Bhupendra was agreeable of this. Brother in law requested a letter stating pt is admitted at [facility]. SW provided a brief letter indicated pt is at the hospital due to pt not losing his section 8. Brother stated if pt were to return back they would need to set extra care for pt at home.
[2022-01-27 16:00] VITALS: BP 90/60
[2022-01-27] MEDS ORDERED: CARBIDOPA/LEVODOPA 25/100 MG 1 UDTAB PO SCH (17:00)
[2022-01-27] MEDS ORDERED: CARBIDOPA/LEVODOPA 25/100 MG 1 UDTAB PO ONE (17:30)
[2022-01-27 20:00] VITALS: BP 117/69
--- NOTE | 2022-01-27 20:11 | NUR ---
RN NOTES: RECEIVED PATIENT IN THE DINING ROOM WATCHING TV. NO S/SX OF ACUTE DISTRESS NOTED. EASILY AGITATED,PARANOID,HYPERVERBAL, GUARDED, BUT COOPERATIVE TO CARE, SOCIALLY INTERACTING WITH PEERS, BLUNTED AFFECT. ENCOURAGED TO VERBALIZATION OF THOUGHTS AND FEELINGS. SAFETY PRECAUTIONS MAINTAINED. WILL CONTINUE TO MONITOR Q15MIN ROUNDS FOR SAFETY AND BEHAVIOR.
[2022-01-27] MEDS: QUETIAPINE FUMARATE 100 MG TABLET PO SCH (21:09)
[2022-01-28 08:00] VITALS: BP 90/59
[2022-01-28] MEDS: ESCITALOPRAM OXALATE (10 MG) 10 MG TABLET PO SCH (09:18)
[2022-01-28] MEDS: LEVETIRACETAM (250 MG) 250 MG TABLET PO SCH ×2 (09:18→21:13)
[2022-01-28] MEDS: DONEPEZIL 5 MG TABLET PO SCH (09:18)
[2022-01-28] MEDS: DOCUSATE SODIUM 100 MG CAPSULE PO SCH (09:18)
[2022-01-28] MEDS: GABAPENTIN 300 MG CAPSULE PO SCH ×3 (09:18→16:41)
[2022-01-28] MEDS: CARBIDOPA/LEVODOPA 25/100 MG 1 UDTAB PO SCH ×3 (09:20→16:40)
[2022-01-28 16:00] VITALS: BP 107/66
[2022-01-28 20:51] VITALS: BP 116/72
[2022-01-28] MEDS: QUETIAPINE FUMARATE 100 MG TABLET PO SCH (21:55)
[2022-01-29 08:00] VITALS: BP 115/65
[2022-01-29] MEDS: LEVETIRACETAM (250 MG) 250 MG TABLET PO SCH ×2 (08:49→20:39)
[2022-01-29] MEDS: DONEPEZIL 5 MG TABLET PO SCH (08:49)
[2022-01-29] MEDS: GABAPENTIN 300 MG CAPSULE PO SCH ×3 (08:49→17:37)
[2022-01-29] MEDS: DOCUSATE SODIUM 100 MG CAPSULE PO SCH (08:49)
[2022-01-29] MEDS: CARBIDOPA/LEVODOPA 25/100 MG 1 UDTAB PO SCH ×3 (08:49→17:37)
[2022-01-29] MEDS: ESCITALOPRAM OXALATE (10 MG) 10 MG TABLET PO SCH (08:49)
[2022-01-29 16:00] VITALS: BP 99/59
[2022-01-29 20:48] VITALS: BP 108/68
[2022-01-29] MEDS: QUETIAPINE FUMARATE 100 MG TABLET PO SCH (21:21)
[2022-01-30 08:00] VITALS: BP 131/76
[2022-01-30] MEDS: CARBIDOPA/LEVODOPA 25/100 MG 1 UDTAB PO SCH ×3 (08:32→16:38)
[2022-01-30] MEDS: DONEPEZIL 5 MG TABLET PO SCH (08:32)
[2022-01-30] MEDS: GABAPENTIN 300 MG CAPSULE PO SCH ×3 (08:32→16:38)
[2022-01-30] MEDS: ESCITALOPRAM OXALATE (10 MG) 10 MG TABLET PO SCH (08:32)
[2022-01-30] MEDS: DOCUSATE SODIUM 100 MG CAPSULE PO SCH (08:32)
[2022-01-30] MEDS: LEVETIRACETAM (250 MG) 250 MG TABLET PO SCH ×2 (08:50→20:07)
[2022-01-30 16:09] VITALS: BP 102/59
[2022-01-30 20:25] VITALS: BP 104/70
[2022-01-30] MEDS: QUETIAPINE FUMARATE 100 MG TABLET PO SCH (21:28)
[2022-01-31] MEDS: ESCITALOPRAM OXALATE (10 MG) 10 MG TABLET PO SCH (09:02)
[2022-01-31] MEDS: DOCUSATE SODIUM 100 MG CAPSULE PO SCH (09:02)
[2022-01-31] MEDS: GABAPENTIN 300 MG CAPSULE PO SCH ×3 (09:03→16:30)
[2022-01-31] MEDS: DONEPEZIL 5 MG TABLET PO SCH (09:03)
[2022-01-31] MEDS: CARBIDOPA/LEVODOPA 25/100 MG 1 UDTAB PO SCH ×3 (09:03→16:30)
[2022-01-31] MEDS: LEVETIRACETAM (250 MG) 250 MG TABLET PO SCH ×2 (09:05→20:52)
--- NOTE | 2022-01-31 09:22 | NUR ---
RN-CO: PATIENT DENIED PAIN AND DISCOMFORTS, ATE WELL. HE IS WELL GROOMED . HIS BEEN CALM AND COOPERATIVE TO CARE. HE DENIES SUICIDAL AND HOMICIDAL IDEATION. HE IS VISIBLE IN THE UNIT WATCHING TV. I WILL CONTINUE TO MONITOR.
--- NOTE | 2022-01-31 10:28 | NUR ---
MAMIE Family Contact: MAMIE spoke with patient's brother in law Huizar ([phone]) and notified of potential discharge 02/02 to [facility]. SW gave family early notification due to family wanting to set up extra care at home when pt discharges from [facility].
--- NOTE | 2022-01-31 10:33 | NUR ---
Mold Capper Helper: MAMIE contacted Director Michael ([phone]) community case manager and left a detailed voicemail of pt's potential discharge to [facility] and notified her to work with the family when pt is stable to returning back home. MAMIE left a detailed voicemail of the capacity of declaration that the out patient psychiatrist had done and updated on his current status at the hospital.
--- NOTE | 2022-01-31 10:58 | NUR ---
Vamp Maker: SW contacted Director Michael ([phone]) explained that the reason why the outpatient submitted capacity declaration was because pt has no support at home and he was unable to care for himself independently at home. rag production worker stated that she was helping pt out. She reported that family was never involved in pt's care and all of a sudden brother in law Bhupendra has been wanting to help pt. She stated she has been unable to find caregivers for pt at home. She stated that his apartment is in need of biohazard lamp cleaner street light. Michael is agreeable of pt going to [facility].
--- NOTE | 2022-01-31 15:49 | NUR ---
SNF Referral: MAMIE sent clinicals to [facility] to Emily pfeiffer ([phone]) for placement. SW sent H & P, progress notes, and medication list.
[2022-01-31 16:00] VITALS: BP 100/62
[2022-01-31 20:04] VITALS: BP 151/71
[2022-01-31] MEDS: QUETIAPINE FUMARATE 100 MG TABLET PO SCH (21:09)
[2022-02-01 08:00] VITALS: BP 117/75
[2022-02-01] MEDS: DOCUSATE SODIUM 100 MG CAPSULE PO SCH (08:54)
[2022-02-01] MEDS: ESCITALOPRAM OXALATE (10 MG) 10 MG TABLET PO SCH (08:55)
[2022-02-01] MEDS: DONEPEZIL 5 MG TABLET PO SCH (08:55)
[2022-02-01] MEDS: GABAPENTIN 300 MG CAPSULE PO SCH ×3 (08:55→17:51)
[2022-02-01] MEDS: LEVETIRACETAM (250 MG) 250 MG TABLET PO SCH ×2 (08:55→21:21)
[2022-02-01] MEDS: CARBIDOPA/LEVODOPA 25/100 MG 1 UDTAB PO SCH ×3 (08:55→17:52)
--- NOTE | 2022-02-01 13:10 | NUR ---
Rug Receiving Clerk: MAMIE contacted Michael ([phone]) and notified that the facility has been changed to [facility].
--- NOTE | 2022-02-01 13:11 | NUR ---
SNF Contact: SW spoke with [facility] to Emily pfeiffer ([phone]) who stated pt is accepted.
[2022-02-01 16:04] VITALS: BP 105/64
[2022-02-01 20:41] VITALS: BP 106/69
[2022-02-01] MEDS: QUETIAPINE FUMARATE 100 MG TABLET PO SCH (21:21)
--- NOTE | 2022-02-02 07:59 | NUR ---
SW Discharge Note: Patient will be discharged to nursing [facility], located at [facility] [place] [address] ([phone]) . Please arrange ambulance transportation at 1PM. sand control worker spoke with Emily parekher ([phone]), who stated patient will be accepted at the facility today. SW contacted pts brother in law Huizar ([phone]) and is aware and agreeable. SW notified pts caser Michael ([phone]) she is agreeable of this. Patient is alert and oriented x2 and is unable to plan for self-care. Patient denies any suicidal or homicidal ideation. Patient is aware and agreeable with discharge plans. Patient will follow-up at the facility with Dr. Saucedo (psychiatrist) [address] [address]; ([phone]) and (Marketing Clerk) Dr. London [address], [place] [address]; ([phone]).
[2022-02-02 08:00] VITALS: BP 131/80
[2022-02-02] MEDS: LEVETIRACETAM (250 MG) 250 MG TABLET PO SCH (08:29)
[2022-02-02] MEDS: GABAPENTIN 300 MG CAPSULE PO SCH ×2 (08:30→13:34)
[2022-02-02] MEDS: DOCUSATE SODIUM 100 MG CAPSULE PO SCH (08:30)
[2022-02-02] MEDS: ESCITALOPRAM OXALATE (10 MG) 10 MG TABLET PO SCH (08:30)
[2022-02-02] MEDS: CARBIDOPA/LEVODOPA 25/100 MG 1 UDTAB PO SCH ×2 (08:30→13:35)
[2022-02-02] MEDS: DONEPEZIL 5 MG TABLET PO SCH (08:30)
--- NOTE | 2022-02-02 09:00 | NUR ---
RN-CO: Dr Saucedo ordered to discontinue hold and discharge patient today to [facility], noted.
--- NOTE | 2022-02-02 09:30 | NUR ---
RN-CO: Dr Lehman medically cleared patient for discharge and ordered to continue current medications.
--- NOTE | 2022-02-02 15:57 | NUR ---
Patient discharged to [facility] in stable condition.Compliant with medications ,cooperative with treatment plans Patient denies SI/HI/AVH .Behavior improved ,psychiatric tx plans met ,medical tx plans differed for for continual monitoring Educated pt about after care plan (Exit -care)and copy provided Returned personal belongings to patient med list given and explained to patient able to verbalize understanding, report given to nurse in facility .Vs stable ,no c/o pain .Patient seen by with discharge orders ,BALJEET Gu DNP called with discharge orders .Patient discharge at 1445 with ambulance.
== END 2022-02-02 14:35 | DRG 885 ==
LOC: ER 13:38 → GPS 18:43
PROVIDERS: ADMIT Psychiatry & Neurology Psychiatry; ATTEND Nurse Practitioner Acute Care
DX: F33.3 Major depressive disorder, recurrent, severe with psychotic symptoms (principal); F02.82 Dementia in other diseases classified elsewhere, unspecified severity, with psychotic disturbance; R45.851 Suicidal ideations; G40.909 Epilepsy, unspecified, not intractable, without status epilepticus; D64.9 Anemia, unspecified; F43.10 Post-traumatic stress disorder, unspecified; G20 Parkinson's disease; G31.83 Neurocognitive disorder with Lewy bodies; F17.200 Nicotine dependence, unspecified, uncomplicated; R62.7 Adult failure to thrive; R26.9 Unspecified abnormalities of gait and mobility; Z91.81 History of falling; Z91.410 Personal history of adult physical and sexual abuse; Z82.0 Family history of epilepsy and other diseases of the nervous system; Z79.899 Other long term (current) drug therapy; M77.41 Metatarsalgia, right foot; Z73.6 Limitation of activities due to disability; E86.0 Dehydration; R79.89 Other specified abnormal findings of blood chemistry; M21.621 Bunionette of right foot; L84 Corns and callosities; Z62.810 Personal history of physical and sexual abuse in childhood; F29 Unspecified psychosis not due to a substance or known physiological condition; Z87.820 Personal history of traumatic brain injury; Z91.51 Personal history of suicidal behavior
CPT/HCPCS: 36415; 80048-TC; 80061-TC; 80076-TC; 82962-TC; 84443-TC; 85025-TC; 87081-TC; 97116-TC; 97530-TC; C9803; G0480

== ENCOUNTER 2022-02-17 19:18 | Inpatient (IN) | payer MEDICARE, OTHER ==
[~2022-02-17] VITALS: Ht 170.2 cm; Wt 67.1 kg
[~2022-02-17 19:18] MED LIST changes: -ASCO-352 PO; -BENZ1LOZ58 MM; -MULT-447 PO; -ONDA4TAB5 PO
--- NOTE | 2022-02-17 19:54 | NUR ---
urine collected and sent to lab
[2022-02-17 20:05] LABS: BASOPHILS # (AUTO) 0.1 K/uL (0.0-0.2); BASOPHILS % (AUTO) 0.8 % (0.0-2.0); EOSINOPHILS % (AUTO) 3.9 % (0.0-6.0); HEMATOCRIT 40 % (39-51); HEMOGLOBIN 13.3 g/dL (13.5-17.5); LYMPHOCYTES # (AUTO) 2.3 K/uL (0.8-4.8); LYMPHOCYTES % (AUTO) 31.2 % (20.0-44.0); MEAN CORPUSCULAR HGB CONC 34 g/dl (31.0-36.0); MEAN CORPUSCULAR VOLUME 90 fL (80-96); MONOCYTES # (AUTO) 0.7 K/uL (0.1-1.30); MONOCYTES % (AUTO) 9.5 % (2.0-12.0); NEUTROPHILS % (AUTO) 54.6 % (43.0-81.0); PLATELET COUNT (AUTO) 301 K/uL (150-450); RED BLOOD CELL COUNT(AUTO) 4.42 MIL/uL (4.5-6.0); WHITE BLOOD COUNT (AUTO) 7.3 K/uL (4.3-11.0)
[2022-02-17 20:16] LABS: CARBON DIOXIDE 29 mmol/L (21-32); CHLORIDE 104 mmol/L (98-107); CREATININE 1.2 mg/dL (0.6-1.3); GLUCOSE 109 mg/dL (74-106); POTASSIUM 4.1 mmol/L (3.5-5.1); SODIUM SERUM 138 mmol/L (136-145); UREA NITROGEN, BLOOD 31 mg/dL (7-18)
[2022-02-17 20:23] LABS: ACETAMINOPHEN 0 ug/ml (10-30); ALANINE AMINOTRANSFERASE 10 U/L (12-78); ALBUMIN 3.6 g/dL (3.4-5.0); ALCOHOL, BLOOD < 3 mg/dL (0-0); ALKALINE PHOSPHATASE 80 U/L (46-116); ASPARTATE AMINOTRANSFERASE 25 U/L (15-37); BILIRUBIN,DIRECT 0.1 mg/dL (0.0-0.2); BILIRUBIN,TOTAL 0.4 mg/dL (0.2-1.0); TOTAL PROTEIN, SERUM 7.4 g/dL (6.4-8.2)
[2022-02-17 20:30] LABS: BILIRUBIN,URINE NEGATIVE (NEGATIVE); COLOR,URINE YELLOW (YELLOW); LEUKOCYTE ESTERASE ,URINE NEGATIVE (NEGATIVE); NITRITE, URINE NEGATIVE (NEGATIVE); PH,URINE 5.5 (5.0-8.0); PROTEIN,URINE NEGATIVE (NEGATIVE); UGLUCOSE NEGATIVE (NEGATIVE); UROBILINOGEN,URINE 0.2 EU/dL (0.2)
--- NOTE | 2022-02-17 20:40 | NUR ---
PATIENT REFUSED COVID19 SWAB
[2022-02-17 21:19] LABS: BACTERIA,URINE None seen /HPF (None Seen); SQUAMOUS EPITHELIAL CELL,UR 0-2 /HPF (None Seen); WBC,URINE 0-2 /HPF (0-3)
--- NOTE | 2022-02-17 22:06 | NUR ---
ART FROM CRISIS TEAM PAGED
--- NOTE | 2022-02-18 00:33 | NUR ---
PATIENT FOR ADMISSION AT 213-1.REPORT GIVEN TO
--- NOTE | 2022-02-18 00:39 | NUR ---
COVID SWAB DONE AND SENT TO LAB
[2022-02-18 02:41] VITALS: BP 126/66
--- NOTE | 2022-02-18 02:41 | NUR ---
GPS ADMISSION NOTE, RECEIVED PATIENT FROM [facility] . PATIENT ARRIVED ON THIS UNIT AT 0241 VIA STRETCHER WITH 1 SENIOR GAME DESIGNER ESCORT. PATIENT ADMITTED ON A 5150 HOLD FOR DTO AND GD. PER HOLD PATIENT IS ALERT AND ORIENTED X 4 AND WAS BROUGHT IN FROM SNF FOR BEING COMBATIVE WITH STAFF. PATIENT HAS PRESSURED SPEECH, IS DISORGANIZED, AND IS DELUSIONAL AT TIME. PATIENT IS UNABLE TO PROVIDE FOR HIS FOOD, CUSTODIAL, OR CLOTHING DUE TO HIS MENTAL DISORDER. THE 5150 WAS REVIEWED AND THE DOCUMENTATION IN THE 5150 HOLD APPEARS TO REFLECT THE PRESENTATION OF THE PATIENT. UPON FACE TO FACE ASSESSMENT PATIENT IS NOTED TO BEING HYPERVERBAL, DISHEVELED, DISORGANIZED, DEMANDING, UNCOOPERATIVE, AND NEEDS REDIRECTION. PATIENT IS CURRENTLY LYING IN BED AWAKE, HAS NO S/S OR COMPLAINTS OF PAIN. PATIENT IS DISPLAYING NO S/S OF APPARENT DISTRESS. PATIENT BREATHING IS UNLABORED WITH EQUAL RISE AND FALL OF THE CHEST. PATIENT IS ALERT AND ORIENTATED X 4 ON ROOM AIR. PATIENT ASSISTED WITH TURING AND REPOSITIONING Q2HR AND PRN FOR COMFORT AND CIRCULATION. PATIENT HAS NO NEEDS AT THIS TIME. PATIENT DENIES SUICIDE IDEATIONS AND HOMICIDAL IDEATIONS AT THIS TIME. PATIENT REFUSED TO SIGNS ANY PAPER WORK AND THINKS THIS IS ALL A MISTAKE. PATIENT ADVISED OF HIS HOLD AND PATIENT RIGHTS BOOKLET GIVEN. PATIENT IS UNDER THE PSYCHIATRIC CARE OF DR. MOHAN AND THE MEDICAL CARE OF DR MEAD. PATIENT BELONGINGS WERE INVENTORIED AND CHECKED FOR CONTRABAND. ALL CONTRABAND REMOVED AND STORED IN PATIENT HALLWAY LOCKER. PATIENT ADVANCED DIRECTIVES PREFERENCE, IMMUNIZATIONS QUESTIONER, NECESSARY PAPERWORK COMPLETED. PATIENT REFUSED SKIN ASSESSMENT. PATIENT ORIENTATED TO ROOM, FLOOR, AND STAFF WITH ALL QUESTIONS ANSWERED. PATIENT EDUCATED ON THE USE OF THE CALL LIGHT. PATIENT BED SIDE RAILS ARE UP X 2 FOR SAFETY. PATIENT BED IS LOCKED, LOW AND I WILL CONTINUE TO MONITOR THIS PATIENT Q 15 MIN WITH THE HELP OF STAFF TO MAINTAIN SAFETY.
--- NOTE | 2022-02-18 02:47 | NUR ---
transferred to 213 in stable condition
[2022-02-18] MEDS ORDERED: LORAZEPAM 1 MG TABLET PO PRN (03:00)
[2022-02-18] MEDS ORDERED: ACETAMINOPHEN 325 MG TABLET PO PRN ×2 (03:00→09:00)
[2022-02-18] MEDS ORDERED: MAGNESIUM HYDROXIDE 30 ML UDC PO PRN ×2 (03:00→09:00)
[2022-02-18] MEDS ORDERED: MAG HYDROX/AL HYDROX/SIMETH 30 ML UDC PO PRN (03:00)
[2022-02-18] MEDS ORDERED: TEMAZEPAM 7.5 MG CAPSULE PO PRN (03:00)
[2022-02-18] MEDS ORDERED: ESCI10TA PO (03:12)
[2022-02-18] MEDS ORDERED: QUET100T PO (03:14)
[2022-02-18] MEDS ORDERED: BLOOD SUGAR DIAGNOSTIC 1 EACH STRIP IN ONE (03:30)
--- NOTE | 2022-02-18 04:30 | NUR ---
GPS RN NOTE, PATIENT NEEDS A MEDICATION RECONCILIATION. PAGED [facility] AND INFORMED MAIK MEAD NP OF MY FINDINGS. MAIK MEAD NP SAID TO ENDORSE TO A.M. SHIFT NURSE TO ASK THE MORNING ROUNDING DOCTOR TO RECONCILE THIS PATIENTS MEDICATIONS. WILL CONTINUE TO MONITOR THIS PATIENT WITH THE HELP OF STAFF.
[2022-02-18 08:00] VITALS: BP 105/62
[2022-02-18] MEDS ORDERED: Medication Not On Formulary EA (Cranberry Extract (Cranberry) 425 MG) PO SCH (09:00)
[2022-02-18] MEDS ORDERED: NA PHOS,M-B/NA PHOS,DI-BA 1 EA ENEMA RC PRN (09:00)
[2022-02-18] MEDS ORDERED: BISACODYL SUPP (10 MG) 10 MG/SUPP.RECT SUPP.RECT RC PRN (09:00)
--- NOTE | 2022-02-18 09:50 | NUR ---
MAMIE Clinical Note: Pt placed on a 5150 hold for danger to others and GD. Pt was aggressive at his facility and was agitated. Patient currently resides at [facility], located at [address] [place] [address] ([phone]). MAMIE contacted Emily Zhang who stated that pt is welcomed back.
--- NOTE | 2022-02-18 09:50 | NUR ---
MAMIE Initial Discharge Plan: Patient currently resides at [facility], located at [address] [place] [address] ([phone]). MAMIE contacted Emily Zhang who stated that pt is welcomed back. MAMIE will work with the MD, family, and treatment team to help coordinate appropriate discharge.
[2022-02-18] MEDS: CARBIDOPA/LEVODOPA 25/100 MG 1 UDTAB PO SCH ×3 (10:31→17:07)
[2022-02-18] MEDS: DOCUSATE SODIUM 100 MG CAPSULE PO SCH (10:31)
[2022-02-18] MEDS: DONEPEZIL 5 MG TABLET PO SCH (10:31)
[2022-02-18] MEDS: LEVETIRACETAM (250 MG) 250 MG TABLET PO SCH ×2 (10:32→20:58)
--- NOTE | 2022-02-18 10:46 | NUR ---
MAMIE Family Contact: SW attempted to contact pt's brother in law Bhupendra ([phone]) to notify of admission and discussed treatment plan. He was unavailable and this display card writer was unable to leave a voicemail.
[2022-02-18] MEDS: GABAPENTIN 300 MG CAPSULE PO SCH ×2 (13:37→17:07)
[2022-02-18 16:00] VITALS: BP 131/73
--- NOTE | 2022-02-18 20:28 | NUR ---
RN NOTES:RECEIVED PATIENT RESTING HIS ROOM, NO S/SX OF ACUTE DISTRESS NOTED. PATIENT EASILY AGITATED, ANXIOUS,FORGETFUL,HYPERVERBAL DISORGANIZED, NEEDY DEMENDING,GIVING INAPPROPRIATE ANSWER TO QUESTIONS, PARANOID, NEEDS FREQUENT REDIRECTION. DENIES SI/HI AT THIS TIME.ENCOURAGE TO VERBALIZED ANY FEELING OR CONCERN, SAFETY MEASURES IN PLACE. WILL CONTINUE TO MONITOR Q15MIN ROUNDS FOR SAFETY AND BEHAVIOR.
[2022-02-18 20:57] VITALS: BP 106/66
[2022-02-18] MEDS: LITHIUM CARBONATE 150 MG CAPSULE PO SCH (20:57)
[2022-02-18] MEDS: QUETIAPINE FUMARATE 100 MG TABLET PO SCH (23:04)
[2022-02-19 07:15] LABS: BASOPHILS # (AUTO) 0.1 K/uL (0.0-0.2); BASOPHILS % (AUTO) 0.8 % (0.0-2.0); EOSINOPHILS % (AUTO) 3.9 % (0.0-6.0); HEMATOCRIT 40 % (39-51); HEMOGLOBIN 13.2 g/dL (13.5-17.5); LYMPHOCYTES # (AUTO) 2.2 K/uL (0.8-4.8); LYMPHOCYTES % (AUTO) 31.8 % (20.0-44.0); MEAN CORPUSCULAR HGB CONC 33 g/dl (31.0-36.0); MEAN CORPUSCULAR VOLUME 92 fL (80-96); MONOCYTES # (AUTO) 0.9 K/uL (0.1-1.30); MONOCYTES % (AUTO) 13.2 % (2.0-12.0); NEUTROPHILS # (AUTO) 3.4 K/uL (1.8-8.9); NEUTROPHILS % (AUTO) 50.3 % (43.0-81.0); PLATELET COUNT (AUTO) 277 K/uL (150-450); RED BLOOD CELL COUNT(AUTO) 4.38 MIL/uL (4.5-6.0); WHITE BLOOD COUNT (AUTO) 6.8 K/uL (4.3-11.0)
[2022-02-19 07:28] LABS: CALCIUM, SERUM 8.8 mg/dL (8.5-10.1); POTASSIUM 3.9 mmol/L (3.5-5.1)
[2022-02-19 08:00] VITALS: BP 97/60
[2022-02-19] MEDS: LEVETIRACETAM (250 MG) 250 MG TABLET PO SCH ×2 (08:22→20:59)
[2022-02-19] MEDS: DOCUSATE SODIUM 100 MG CAPSULE PO SCH (08:22)
[2022-02-19] MEDS: LITHIUM CARBONATE 150 MG CAPSULE PO SCH ×2 (08:22→21:00)
[2022-02-19] MEDS: CARBIDOPA/LEVODOPA 25/100 MG 1 UDTAB PO SCH ×3 (08:22→16:09)
[2022-02-19] MEDS: GABAPENTIN 300 MG CAPSULE PO SCH ×3 (08:22→16:09)
[2022-02-19] MEDS: ESCITALOPRAM OXALATE (10 MG) 10 MG TABLET PO SCH (08:22)
[2022-02-19] MEDS: DONEPEZIL 5 MG TABLET PO SCH (08:23)
[2022-02-19] MEDS ORDERED: PIMAVANSERIN TARTRATE 34 MG PO SCH (09:00)
[2022-02-19 16:00] VITALS: BP 100/62
[2022-02-19 20:29] VITALS: BP 106/65
[2022-02-19] MEDS: QUETIAPINE FUMARATE 100 MG TABLET PO SCH (21:45)
[2022-02-20 08:00] VITALS: BP 125/75
[2022-02-20] MEDS: DONEPEZIL 5 MG TABLET PO SCH (08:41)
[2022-02-20] MEDS: GABAPENTIN 300 MG CAPSULE PO SCH ×3 (08:41→17:47)
[2022-02-20] MEDS: ESCITALOPRAM OXALATE (10 MG) 10 MG TABLET PO SCH (08:41)
[2022-02-20] MEDS: CARBIDOPA/LEVODOPA 25/100 MG 1 UDTAB PO SCH ×3 (08:41→17:47)
[2022-02-20] MEDS: LITHIUM CARBONATE 150 MG CAPSULE PO SCH ×2 (08:41→21:05)
[2022-02-20] MEDS: DOCUSATE SODIUM 100 MG CAPSULE PO SCH (08:41)
[2022-02-20] MEDS: LEVETIRACETAM (250 MG) 250 MG TABLET PO SCH ×2 (08:41→21:04)
[2022-02-20 16:00] VITALS: BP 111/70
[2022-02-20 20:00] VITALS: BP 125/67
--- NOTE | 2022-02-20 20:00 | NUR ---
GPS RN NOTES PATIENT REFUSED SKIN ASSESSMENT. EXPLAINED RISKS/BENEFITS. PATIENT STILL REFUSED.
[2022-02-20] MEDS: QUETIAPINE FUMARATE 100 MG TABLET PO SCH (21:04)
[2022-02-21 08:00] VITALS: BP 125/72
[2022-02-21] MEDS: LEVETIRACETAM (250 MG) 250 MG TABLET PO SCH ×2 (08:43→20:49)
[2022-02-21] MEDS: DOCUSATE SODIUM 100 MG CAPSULE PO SCH (08:43)
[2022-02-21] MEDS: GABAPENTIN 300 MG CAPSULE PO SCH ×3 (08:43→17:13)
[2022-02-21] MEDS: DONEPEZIL 5 MG TABLET PO SCH (08:43)
[2022-02-21] MEDS: ESCITALOPRAM OXALATE (10 MG) 10 MG TABLET PO SCH (08:43)
[2022-02-21] MEDS: LITHIUM CARBONATE 150 MG CAPSULE PO SCH ×2 (08:44→20:52)
[2022-02-21] MEDS: CARBIDOPA/LEVODOPA 25/100 MG 1 UDTAB PO SCH ×3 (08:44→17:13)
--- NOTE | 2022-02-21 11:55 | NUR ---
RN-CO: Patient is easily agitated, can be argumentative and has poor impulse control. Encouraged to do deep breathing exercises, participate in groups and ventilate feelings.
--- NOTE | 2022-02-21 12:36 | NUR ---
MAMIE Family Contact: SW attempted to contact pt's brother in law Bhupendra ([phone]) to discuss treatment/discharge plan and spoke with pt's sister Tess who stated that they would want pt back home upon discharge. She stated she would prefer him to come back home after Halloween due to the fear of pt living in [place] and scared how it would be.
[2022-02-21 16:00] VITALS: BP 128/76
[2022-02-21 19:52] VITALS: BP 115/73
[2022-02-21 19:57] VITALS: BP 115/73
[2022-02-21] MEDS: QUETIAPINE FUMARATE 100 MG TABLET PO SCH (21:13)
[2022-02-21] MEDS: ZOLPIDEM TARTRATE 5 MG TABLET PO PRN (21:41)
[2022-02-22 08:00] VITALS: BP 144/75
[2022-02-22] MEDS: DONEPEZIL 5 MG TABLET PO SCH (08:21)
[2022-02-22] MEDS: GABAPENTIN 300 MG CAPSULE PO SCH ×3 (08:21→16:24)
[2022-02-22] MEDS: LITHIUM CARBONATE 150 MG CAPSULE PO SCH ×3 (08:22→16:24)
[2022-02-22] MEDS: CARBIDOPA/LEVODOPA 25/100 MG 1 UDTAB PO SCH ×3 (08:22→16:24)
[2022-02-22] MEDS: ESCITALOPRAM OXALATE (10 MG) 10 MG TABLET PO SCH (08:22)
[2022-02-22] MEDS: LEVETIRACETAM (250 MG) 250 MG TABLET PO SCH ×2 (08:22→20:16)
[2022-02-22] MEDS: DOCUSATE SODIUM 100 MG CAPSULE PO SCH (08:22)
[2022-02-22 16:10] VITALS: BP 113/61
[2022-02-22 20:23] VITALS: BP 114/66
[2022-02-22] MEDS: QUETIAPINE FUMARATE 100 MG TABLET PO SCH (21:15)
[2022-02-23] MEDS: ZOLPIDEM TARTRATE 5 MG TABLET PO PRN (00:09)
--- NOTE | 2022-02-23 07:40 | NUR ---
RN OPENING NOTES PATIENT AWAKE IN BED RESTING, A/O X 2-3, FORGETFUL, EASILY IRRITABLE. NO S/S OF PAIN NOTED AT THIS TIME. ON ROOM AIR, NO DISTRESS OR SHORTNESS OF BREATH NOTED. PATIENT COMPLIANT WITH MEDICATION. PATIENT DENIES SUICIDE IDEATIONS AND HOMICIDAL IDEATIONS AT THIS TIME. PATIENT HAS NO NEEDS AT THIS TIME. FALL AND SAFETY MEASURES IN PLACE, BED ALARM ON, BED IN LOW LOCK POSITION, CALL LIGHT AND TABLE WITHIN EASY REACH, SIDE RAILS UP X2. WILL CONTINUE TO MONITOR.
[2022-02-23 08:00] VITALS: BP 124/68
[2022-02-23] MEDS: ESCITALOPRAM OXALATE (10 MG) 10 MG TABLET PO SCH (08:38)
[2022-02-23] MEDS: LITHIUM CARBONATE 150 MG CAPSULE PO SCH ×3 (08:38→16:43)
[2022-02-23] MEDS: DOCUSATE SODIUM 100 MG CAPSULE PO SCH (08:38)
[2022-02-23] MEDS: CARBIDOPA/LEVODOPA 25/100 MG 1 UDTAB PO SCH ×3 (08:38→16:43)
[2022-02-23] MEDS: DONEPEZIL 5 MG TABLET PO SCH (08:38)
[2022-02-23] MEDS: GABAPENTIN 300 MG CAPSULE PO SCH ×3 (08:38→16:43)
[2022-02-23] MEDS: LEVETIRACETAM (250 MG) 250 MG TABLET PO SCH ×2 (08:39→21:27)
--- NOTE | 2022-02-23 10:27 | NUR ---
Court Notification: SW attempted to contact pt's brother in law Bhupendra ([phone]) to notify of 5250 hearing, however, voicemail was not set up.
--- NOTE | 2022-02-23 10:28 | NUR ---
Court Hearing: Patient's court hearing for 3240 was today and it was upheld for danger to others and GD.
[2022-02-23 16:00] VITALS: BP 118/71
--- NOTE | 2022-02-23 19:28 | NUR ---
RN OPENING NOTES RECEIVED PATIENT BED AWAKE IN RESTING, A/O X 2-3, FORGETFUL,WILLI WELL,ON ROOM AIR, NO SOB/DISTRESS NOTED,NO BEHAVIORAL CHANGES AT THIS TIME,FALL AND SAFETY MEASURES IN PLACE, BED ALARM ON, BED IN LOW LOCK POSITION, CALL LIGHT AND TABLE WITHIN EASY REACH, SIDE RAILS UP X2. WILL CONTINUE TO MONITOR.
[2022-02-23 20:00] VITALS: BP 106/69
[2022-02-23] MEDS: QUETIAPINE FUMARATE 100 MG TABLET PO SCH (21:27)
[2022-02-24 08:00] VITALS: BP 110/78
[2022-02-24] MEDS: GABAPENTIN 300 MG CAPSULE PO SCH ×3 (08:27→16:25)
[2022-02-24] MEDS: ESCITALOPRAM OXALATE (10 MG) 10 MG TABLET PO SCH (08:27)
[2022-02-24] MEDS: LITHIUM CARBONATE 150 MG CAPSULE PO SCH ×3 (08:27→16:25)
[2022-02-24] MEDS: CARBIDOPA/LEVODOPA 25/100 MG 1 UDTAB PO SCH ×3 (08:27→16:25)
[2022-02-24] MEDS: DONEPEZIL 5 MG TABLET PO SCH (08:27)
[2022-02-24] MEDS: LEVETIRACETAM (250 MG) 250 MG TABLET PO SCH ×2 (08:27→20:48)
[2022-02-24] MEDS: DOCUSATE SODIUM 100 MG CAPSULE PO SCH (08:27)
[2022-02-24 16:00] VITALS: BP 126/80
[2022-02-24] MEDS: CLOTRIMAZOLE 1% 15 GM TUBE TP SCH (16:48)
--- NOTE | 2022-02-24 17:28 | NUR ---
RN-NOTES PATIENT IS VISIBLE IN THE UNIT A/O X3,ATTENDED GROUPS. NOTED WITH EASILY IRRITABLE, DEMANDING AND HYPERVERBAL BEHAVIOR. COMPLIANT WITH MEDICATIONS. ABLE TO MAKE NEEDS KNOWN TO THE STAFF.NEEDS MODERATE ASSIST WITH ADL'S.ALL NEEDS ATTENDED AND ANTICIPATED. WILL CONT. MONITORING FOR SAFETY AND BEHAVIOR.WILL ENDORSE TO INCOMING NURSE FOR CONTINUITY OF CARE.
[2022-02-24 20:00] VITALS: BP 121/61
--- NOTE | 2022-02-24 20:26 | NUR ---
RN NOTES: PATIENT WATCHING TV IN ACTIVITY ROOM, NO S/SX OF ACUTE DISTRESS NOTED. PATIENT EASILY AGITATED, ANXIOUS,FORGETFUL,HYPERVERBAL DISORGANIZED, NEEDY DEMENDING,GIVING INAPPROPRIATE ANSWER TO QUESTIONS, PARANOID, NEEDS FREQUENT REDIRECTION. DENIES SI/HI AT THIS TIME.ENCOURAGE TO VERBALIZED ANY FEELING OR CONCERN, SAFETY MEASURES IN PLACE. WILL CONTINUE TO MONITOR Q15MIN ROUNDS FOR SAFETY AND BEHAVIOR.
[2022-02-24] MEDS: QUETIAPINE FUMARATE 100 MG TABLET PO SCH (21:43)
[2022-02-25] MEDS: CLOTRIMAZOLE 1% 15 GM TUBE TP SCH ×2 (07:49→16:48)
[2022-02-25] MEDS: DOCUSATE SODIUM 100 MG CAPSULE PO SCH (07:49)
[2022-02-25] MEDS: DONEPEZIL 5 MG TABLET PO SCH (07:49)
[2022-02-25] MEDS: GABAPENTIN 300 MG CAPSULE PO SCH ×3 (07:50→16:49)
[2022-02-25] MEDS: ESCITALOPRAM OXALATE (10 MG) 10 MG TABLET PO SCH (07:50)
[2022-02-25] MEDS: LEVETIRACETAM (250 MG) 250 MG TABLET PO SCH ×2 (07:50→21:21)
[2022-02-25] MEDS: CARBIDOPA/LEVODOPA 25/100 MG 1 UDTAB PO SCH ×3 (07:51→16:49)
[2022-02-25] MEDS: LITHIUM CARBONATE 150 MG CAPSULE PO SCH ×3 (07:51→16:49)
[2022-02-25 08:00] VITALS: BP 142/83
--- NOTE | 2022-02-25 11:34 | NUR ---
Public Guardian: MAMIE received a call from public guardian office Maryjane ([phone]) who wanted updates on pt stating that a community agency filed for conservatorship. MAMIE notified that pt will be discharging next week. MAMIE did give her families information and brother in law Bhupendra who is involved.
--- NOTE | 2022-02-25 11:54 | NUR ---
GPS/RN LITHIUM 300MG WAS NOT GIVEN PT HAD THE DOSE 150MG IN AM. WILL START NEW DOSE SCHEDULED AT 1700
[2022-02-25 16:00] VITALS: BP 115/68
--- NOTE | 2022-02-25 19:30 | NUR ---
GPS RN NOTE, RECEIVED PATIENT AWAKE AND IN MING CHAIR, NO S/S OR COMPLAINTS OF PAIN AT THIS TIME. PATIENT IS DISPLAYING NO S/S OF APPARENT DISTRESS AT THIS TIME. PATIENT BREATHING IS UNLABORED WITH EQUAL RISE AND FALL OF THE CHEST. PATIENT IS ALERT AND ORIENTED X 2 ON ROOM AIR WITH A SPO2 96%. PATIENT IS COMPLIANT WITH MEDICATIONS, ANXIOUS, EASILY IRRITABLE, PARANOID, DISORGANIZED, AND COOPERATIVE. PATIENT DENIES SUICIDAL AND HOMICIDAL IDEATIONS AT THIS TIME. PATIENT ASSISTED WITH TURNING AND REPOSITIONING Q2HR AND PRN FOR COMFORT AND CIRCULATION. PATIENT HAS NO NEEDS AT THIS TIME. PATIENT EDUCATED ON THE USE OF THE CALL NGUYEN. PATIENT BED SIDE RAILS UP X 2 FOR SAFETY. PATIENT BED IS LOCKED, LOW, WITH BED ALARM ON. WILL CONTINUE TO MONITOR THIS PATIENT Q15 MINUTES WITH THE HELP OF STAFF TO MAINTAIN SAFETY.
[2022-02-25 20:00] VITALS: BP 102/61
[2022-02-25] MEDS: QUETIAPINE FUMARATE 100 MG TABLET PO SCH ×2 (21:21→22:00)
--- NOTE | 2022-02-25 22:36 | NUR ---
GPS RN NOTE, PATIENT REFUSED SEROQUEL 100MG PO HS. OFFERED THREE TIMES AND STILL PATIENT REFUSED STATING, " THAT MEDICATION MAKES ME TO SLEEPY AND I END UP PEEING ALL OVER MY SELF AT NIGHT ". EDUCATED PATIENT ON THE RISKS AND BENEFITS OF TAKING AND REFUSING SEROQUEL. WILL CONTINUE TO MONITOR THIS PATIENT WITH THE HELP OF STAFF.
[2022-02-26 08:00] VITALS: BP 106/60
[2022-02-26] MEDS: LITHIUM CARBONATE 150 MG CAPSULE PO SCH ×2 (08:43→16:41)
[2022-02-26] MEDS: DONEPEZIL 5 MG TABLET PO SCH (08:43)
[2022-02-26] MEDS: GABAPENTIN 300 MG CAPSULE PO SCH ×3 (08:44→16:42)
[2022-02-26] MEDS: ESCITALOPRAM OXALATE (10 MG) 10 MG TABLET PO SCH (08:44)
[2022-02-26] MEDS: CLOTRIMAZOLE 1% 15 GM TUBE TP SCH ×2 (08:44→16:40)
[2022-02-26] MEDS: LEVETIRACETAM (250 MG) 250 MG TABLET PO SCH ×2 (08:44→21:28)
[2022-02-26] MEDS: CARBIDOPA/LEVODOPA 25/100 MG 1 UDTAB PO SCH ×3 (08:44→16:42)
[2022-02-26] MEDS: DOCUSATE SODIUM 100 MG CAPSULE PO SCH (08:44)
[2022-02-26 16:00] VITALS: BP 113/63
--- NOTE | 2022-02-26 19:30 | NUR ---
GPS RN NOTE, RECEIVED PATIENT AWAKE AND IN MING CHAIR, NO S/S OR COMPLAINTS OF PAIN AT THIS TIME. PATIENT IS DISPLAYING NO S/S OF APPARENT DISTRESS AT THIS TIME. PATIENT BREATHING IS UNLABORED WITH EQUAL RISE AND FALL OF THE CHEST. PATIENT IS ALERT AND ORIENTED X 2 ON ROOM AIR WITH A SPO2 95%. PATIENT IS COMPLIANT WITH MEDICATIONS, ANXIOUS, EASILY IRRITABLE, PARANOID, DISORGANIZED, AND COOPERATIVE. PATIENT DENIES SUICIDAL AND HOMICIDAL IDEATIONS AT THIS TIME. PATIENT ASSISTED WITH TURNING AND REPOSITIONING Q2HR AND PRN FOR COMFORT AND CIRCULATION. PATIENT HAS NO NEEDS AT THIS TIME. PATIENT EDUCATED ON THE USE OF THE CALL NGUYEN. PATIENT BED SIDE RAILS UP X 2 FOR SAFETY. PATIENT BED IS LOCKED, LOW, WITH BED ALARM ON. WILL CONTINUE TO MONITOR THIS PATIENT Q15 MINUTES WITH THE HELP OF STAFF TO MAINTAIN SAFETY.
[2022-02-26 20:57] VITALS: BP 124/73
[2022-02-26] MEDS: QUETIAPINE FUMARATE 100 MG TABLET PO SCH (21:29)
[2022-02-27 08:00] VITALS: BP 124/80
[2022-02-27] MEDS: GABAPENTIN 300 MG CAPSULE PO SCH ×3 (08:33→18:01)
[2022-02-27] MEDS: LITHIUM CARBONATE 150 MG CAPSULE PO SCH ×2 (08:33→18:00)
[2022-02-27] MEDS: CARBIDOPA/LEVODOPA 25/100 MG 1 UDTAB PO SCH ×3 (08:33→18:01)
[2022-02-27] MEDS: DOCUSATE SODIUM 100 MG CAPSULE PO SCH (08:33)
[2022-02-27] MEDS: LEVETIRACETAM (250 MG) 250 MG TABLET PO SCH ×2 (08:33→20:17)
[2022-02-27] MEDS: DONEPEZIL 5 MG TABLET PO SCH (08:33)
[2022-02-27] MEDS: CLOTRIMAZOLE 1% 15 GM TUBE TP SCH ×2 (08:43→17:58)
[2022-02-27 15:59] VITALS: BP 110/64
--- NOTE | 2022-02-27 20:00 | NUR ---
RN NOTE PATIENT REFUSED SKIN ASSESSMENT.
[2022-02-27 20:21] VITALS: BP 119/71
[2022-02-27] MEDS: QUETIAPINE FUMARATE 100 MG TABLET PO SCH (21:09)
[2022-02-27] MEDS: ZOLPIDEM TARTRATE 5 MG TABLET PO PRN (21:37)
[2022-02-28 08:00] VITALS: BP 131/84
[2022-02-28] MEDS: DONEPEZIL 5 MG TABLET PO SCH (08:38)
[2022-02-28] MEDS: GABAPENTIN 300 MG CAPSULE PO SCH ×3 (08:38→17:18)
[2022-02-28] MEDS: LITHIUM CARBONATE 150 MG CAPSULE PO SCH ×2 (08:38→17:18)
[2022-02-28] MEDS: DOCUSATE SODIUM 100 MG CAPSULE PO SCH (08:38)
[2022-02-28] MEDS: LEVETIRACETAM (250 MG) 250 MG TABLET PO SCH ×2 (08:41→21:13)
[2022-02-28] MEDS: CLOTRIMAZOLE 1% 15 GM TUBE TP SCH ×2 (08:42→17:25)
--- NOTE | 2022-02-28 08:55 | NUR ---
MAMIE Coordination of Care: Patient referred for intake evaluation (psychiatry) at [facility] located at [address] [place], [place] [id number]; ([phone]) on March 03 at 1:30PM, scheduled by officer of the day.
[2022-02-28] MEDS: CARBIDOPA/LEVODOPA 25/100 MG 1 UDTAB PO SCH ×3 (08:58→17:18)
[2022-02-28 16:00] VITALS: BP 121/80
[2022-02-28 20:08] VITALS: BP 109/55
[2022-02-28] MEDS: QUETIAPINE FUMARATE 100 MG TABLET PO SCH (21:13)
[2022-02-28] MEDS: ZOLPIDEM TARTRATE 5 MG TABLET PO PRN (21:50)
[2022-03-01 08:00] VITALS: BP 133/78
--- NOTE | 2022-03-01 08:19 | NUR ---
SW Discharge Note: Patient will return back home located at [address], [place] [address]; (). 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 Patient is alert and oriented x3. Patient denies suicidal or homicidal ideation. Patient denies visual/auditory hallucinations. Patient referred to [facility] for primary doctor located at [address] [place] [address], [address], [place] [address] ([phone]). Patient referred for intake evaluation (psychiatry) at [facility] located at [address] [place] [id number]; ([phone]) on March 03 at 1:30PM. Patient presents with euthymic mood and congruent affect.
[2022-03-01] MEDS: CARBIDOPA/LEVODOPA 25/100 MG 1 UDTAB PO SCH ×3 (09:46→16:14)
[2022-03-01] MEDS: LEVETIRACETAM (250 MG) 250 MG TABLET PO SCH (09:47)
[2022-03-01] MEDS: GABAPENTIN 300 MG CAPSULE PO SCH ×3 (09:47→16:14)
[2022-03-01] MEDS: DOCUSATE SODIUM 100 MG CAPSULE PO SCH (09:47)
[2022-03-01] MEDS: DONEPEZIL 5 MG TABLET PO SCH (09:47)
[2022-03-01] MEDS: LITHIUM CARBONATE 150 MG CAPSULE PO SCH ×2 (09:47→16:14)
[2022-03-01] MEDS: CLOTRIMAZOLE 1% 15 GM TUBE TP SCH ×2 (09:52→17:08)
[2022-03-01 16:03] VITALS: BP 119/71
--- NOTE | 2022-03-01 17:23 | NUR ---
GPS REPAIRER HAIRSPRING NOTES PATIENT IS WITH ORDER FOR DISCHARGE TO HOME TODAY , WILL BE DEVELOPMENT EDUCATOR BY , DISCHARGE PAPERS PREPARED AND INSTRUCTIONS PROVIDED REGARDING MEDICATIONS TO CONTINUE AT HOME , SAFETY , FOLLOW WITH PCP AND PSYCHIATRIST , ALL INSTRUCTIONS WERE UNDERSTOOD AND BROTHER MANUEL CAME TO PICK VIA PRIVATE CAR. ALL BELONGINGS WERE ACCOUNTED FOR , ACCOMPANIED TO THE LOBBY BY ORNITHOLOGY TEACHER VIA WHEEL CHAIR AND PATIENT LEFT IN A STABLE CONDITION, Addendum: 03/01/22 at 1740 by JASON CARRANZA RN PATIENT LEFT AROUND 1710
== END 2022-03-01 17:10 | DRG 885 ==
LOC: ER 19:20 → GPS 02-18 01:05
PROVIDERS: ADMIT Psychiatry & Neurology Psychiatry; ATTEND Internal Medicine
DX: F31.5 Bipolar disorder, current episode depressed, severe, with psychotic features (principal); F02.84 Dementia in other diseases classified elsewhere, unspecified severity, with anxiety; F29 Unspecified psychosis not due to a substance or known physiological condition; G20 Parkinson's disease; Z79.899 Other long term (current) drug therapy; B35.3 Tinea pedis; L84 Corns and callosities; R26.2 Difficulty in walking, not elsewhere classified; M62.50 Muscle wasting and atrophy, not elsewhere classified, unspecified site; G31.83 Neurocognitive disorder with Lewy bodies; F17.200 Nicotine dependence, unspecified, uncomplicated; F43.10 Post-traumatic stress disorder, unspecified; G40.909 Epilepsy, unspecified, not intractable, without status epilepticus; Z87.820 Personal history of traumatic brain injury; Z91.81 History of falling; R62.7 Adult failure to thrive; Z73.6 Limitation of activities due to disability; R53.1 Weakness; R27.8 Other lack of coordination
CPT/HCPCS: 36415; 80048-TC; 80061-TC; 80076-TC; 81001; 82962-TC; 85025-TC; 87081-TC; 97112-TC; 97116-TC; 97530-TC; G0480